=== PATIENT | female | born 1970 | race Caucasian/White ===

== ENCOUNTER 2020-04-22 06:09 | Outpatient (REF) | payer OTHER, SELFPAY ==
[2020-04-22 07:05] LABS: Hematocrit 40.9 % (37-47); Hemoglobin 13.4 g/dl (12.0-16.0); Mean Corpuscular HGB Conc 32.8 g/dl (31.0-35.0); Mean Corpuscular Hemoglobin 29.8 pg (27.0-33.0); Mean Corpuscular Volume 90.9 fL (80-98); Platelet Count 225 X10*3/uL (160-400); Red Cell Distribution Width 12.9 % (11.0-16.0); White Blood Count 6.5 X10*3/uL (4.8-10.8)
[2020-04-22 07:31] LABS: Alanine Aminotransferase 25 U/L (0-31); Albumin Level 4.6 g/dL (3.5-5.0); Alkaline Phosphatase 75 U/L (39-117); Aspartate Amino Transferase 18 U/L (5-31); Bilirubin Direct 0.2 mg/dL (0.0-0.5); Bilirubin Total 0.7 mg/dL (0.0-1.0); Blood Urea Nitrogen 19 mg/dL (9-16); Calcium 9.4 mg/dL (8.4-10.2); Cholesterol 207 mg/dL; Estimated Glomerular Filt Rate > 60; Glucose Fasting 97 mg/dL (60-99); HDL Cholesterol 50 mg/dL; LDL Cholesterol Calculated 137 mg/dl; Total Protein 7.2 g/dL (6.5-8.0); Triglycerides 102 mg/dL
[2020-04-22 07:44] LABS: Anion Gap 14 (12-20); Carbon Dioxide 26 mmol/L (22-29); Chloride 106 mmol/L (96-108); Potassium 4.6 mmol/L (3.3-5.1); Sodium 141 mmol/L (135-145)
[2020-04-22 07:51] LABS: TSH reflex Free T4 1.76 uIU/mL (0.32-4.0)
== END 2020-04-22 06:10 | disposition home or self-care (01) ==
LOC: HO.LAB 06:09
PROVIDERS: PCP Hospitalist; Visit Provider Hospitalist
DX: Z00.00 Encounter for general adult medical examination without abnormal findings (principal); Z13.220 Encounter for screening for lipoid disorders; Z13.29 Encounter for screening for other suspected endocrine disorder
CPT/HCPCS: 36415; 80048; 80061; 80076; 84443; 85027

== ENCOUNTER 2020-08-21 13:57 | Outpatient (REF) | payer OTHER, SELFPAY ==
--- NOTE | ~2020-08-21 | MM_ITS ---
EXAMINATION: MM SCREENING DIGITAL BREAST TOMOSYNTHESIS, BILATERAL CLINICAL INFORMATION: Screening. Asymptomatic. The lifetime risk of breast cancer based on the Tyrer-Cuzick Model is 9%. COMPARISON: Outside mammography: 03/27/2019, 02/04/2015, 06/10/2010 ([facility]) TECHNIQUE: Digital breast tomosynthesis is performed in both the craniocaudal and mediolateral oblique views along with computer-aided detection (CAD). Synthesized 2D images are generated from the tomosynthesis. FINDINGS: There are scattered areas of fibroglandular density (ACR BI-RADS breast composition Category b). Breast tissue composition borders on predominantly fatty. The right breast is unremarkable. There is no interval mass or architectural abnormality. Neither breast shows abnormal calcifications. The axilla and skin contours are unremarkable. The left breast has a benign-appearing circumscribed subcentimeter macrolobulated nodule anterior central 3:00 position measuring 6 x 5 x 4 mm. This is not seen with certainty on prior exams. Patient will be recalled to further characterize with targeted ultrasound. The remainder the left breast is unremarkable. MM/MM tomosynthesis screening BI IMPRESSION: 1. Left: Circumscribed macrolobulated nodule 6 x 5 x 4 mm anterior central 3:00 position. 2. Right: No mammographic evidence of malignancy. ASSESSMENT: BI-RADS 0: Incomplete - Need Additional Imaging Evaluation RECOMMENDATION: 1. Targeted left breast ultrasound. 2. Radiology department staff will contact the patient for additional imaging. This patient's information was entered into a reminder system with a target due date for their next mammogram.
== END 2020-08-21 13:58 | disposition home or self-care (01) ==
LOC: HO.MAMMO 13:57
PROVIDERS: Visit Provider Hospitalist
DX: Z12.31 Encounter for screening mammogram for malignant neoplasm of breast (principal)
CPT/HCPCS: 77063; 77067

== ENCOUNTER → 2020-08-31 14:01 | Outpatient (BNVA) | payer OTHER, SELFPAY | PROVIDERS: PCP Hospitalist; Referring Provider Hospitalist; Visit Provider Physician Assistant ==

== ENCOUNTER 2020-09-01 10:50 | Outpatient (REF) | payer OTHER, SELFPAY ==
--- NOTE | ~2020-09-01 | US_ITS ---
EXAMINATION: US DIAGNOSTIC ULTRASOUND BREAST, LEFT CLINICAL INFORMATION: Left breast circumscribed density 3 o'clock position. COMPARISON: Mammography: 08/21/2020 and studies dating back to 02/04/2015. TECHNIQUE: Ultrasound of the breast is performed with real-time conteh scale imaging and color Doppler. FINDINGS: About the 3 o'clock position, 4 cm from the nipple, there is a cylindrical circumscribed hypoechoic lesion which corresponds in shape and location to the mammographic finding. There is some minimal through-sound transmission present and no internal vascularity. On longitudinal imaging, it appears to be taller than it is wide but without sound shadowing and with some mild distal sound enhancement. This likely represents a small cyst. Six-month follow-up left breast mammogram and ultrasound recommended. The initial recommendation given to patient at time of study was one-year follow-up. Patient will be notified of the new 6-month follow-up recommendation. US/US breast LT limited IMPRESSION: Mammographic density 3 o'clock position, 4 cm from nipple, appears to correspond to a complex cyst. There is no distal-sound shadowing and no internal vascularity. On one image, the lesion is taller than it is wide but still has smooth back wall and no distal-sound shadowing. Six-month follow-up mammography and ultrasound recommended. ASSESSMENT: BI-RADS 3: Probably Benign. RECOMMENDATION: Diagnostic mammography in 6 months. This patient's information was entered into a reminder system with a target due date for their next mammogram.
== END 2020-09-01 10:51 | disposition home or self-care (01) ==
LOC: HO.MAMMO 10:50
PROVIDERS: PCP Hospitalist; Visit Provider Hospitalist
DX: R92.8 Other abnormal and inconclusive findings on diagnostic imaging of breast (principal)
CPT/HCPCS: 76642

== ENCOUNTER 2020-10-16 06:52 | Day surgery (SDC) | payer OTHER, SELFPAY ==
[2020-10-08 11:39] VITALS: BMI 38.9
[2020-10-16 07:15] VITALS: BP 138/75; PULSE 91; RESP 16; TEMP 36.4; O2SAT 97
--- NOTE | 2020-10-16 07:44 | P.CONAN_ITS ---
HPI - Anesthesia Eval Consult details Narrative: Screening Colonoscopy [facility] Active Problems Active Problems: All Active Problems (Updated 10/08/20 @ 11:46 by Sherita Barney) Asthma, mild intermittent, well-controlled (Acute) Obesity (BMI 35.0-39.9 without comorbidity) (Acute) Well adult exam (Acute) Ascending aorta dilatation (Acute) Mild concentric left ventricular hypertrophy (LVH) (Acute) Essential hypertension (Acute) Screening for colon cancer (Acute) Past Medical History Medical History AA (aortic aneurysm) Asthma delivery delivered COVID-19 vaccine series completed Migraines Varicose veins of both legs with edema Family History Family History Father Hypertension Colon polyps Mother Hypertension Paternal Grandfather Colon cancer Family history of problems with anesthesia: No Surgical History Surgical History H/O medial meniscus repair of right knee H/O tubal ligation History of cholecystectomy History of Problems with Anesthesia: No Social History Social History Household Members Other:: , 14 y/o Are you a primary floor care technician to a significant other at home: No Do you presently have visiting nurse or other home services: No Patient Tobacco Use Status: Never used Tobacco Use of substances other than those prescribed or required for medical reasons: No Have you been hit, kicked, punched, or otherwise hurt by someone within the past year? If so, by whom?: No Are you DNR?: No Advance Directives: No Advance Directives Information Provided: No Advance Directives on File: No Recently lost weight without trying: No Eating poorly because of decreased appetite: No Nutrition Risks: No Nutritional Risk Patient : No Current occupation: Nurse Meds Allergies Allergy/AdvReac Type Severity Reaction Status Date / Time No Known Allergies Allergy Verified 10/16/20 07:06 Wet cold weather Allergy Intermediate urticaria Uncoded 10/08/20 11:46 Active Medications: Current Medications Generic Name Dose Route Start Last Admin Trade Name Freq PRN Reason Stop Dose Admin Acetaminophen 650 mg 10/16/20 07:44 Acetaminophen 325 Mg Tablet PO ONCE PRN Pain, Mild (Pain Scale 1-3) Lactated Ringer's 1,000 mls @ 50 mls/hr 10/16/20 07:45 Lr IVCONT .Q20H DILSHAD Ondansetron HCl 4 mg 10/16/20 07:44 Ondansetron Hcl 4 Mg/2 Ml Vial IVPUSH ONCE PRN Nausea and Vomiting Home Medications Medication Instructions Recorded Confirmed Last Taken Type albuterol sulfate 90 mcg/actuation 2 puff INHALATION Q4H PRN 03/18/20 10/08/20 Unknown History aerosol inhaler epinephrine 0.3 mg/0.3 mL 1 IM DIRECTED PRN 03/18/20 04/23/20 Unknown History injection, auto-injector Exam Exam Date and Time: October 16, 2020 0744 Height,Weight and Vital Signs: Height 5 ft 5 in Weight 106.141 kg Last Vital Signs Temp 97.6 F 10/16/20 07:15 Pulse 91 10/16/20 07:15 Resp 16 10/16/20 07:15 BP 138/75 10/16/20 07:15 Pulse Ox 97 10/16/20 07:15 Airway Mallampati Class: II TM Dist: >3cm Neck ROM: Full Loose/Missing/Broken Teeth: No Heart: [id number] Lungs: +b/s bilaterally Assessment and Plan Assessment Anesthesia Assessment: Anesthesia Plan Discussed and Chart Reviewed Final Anesthetic Review Family History of Problems with Anesthesia: No History of Problems with Anesthesia: No NPO: Yes ASA Class: II Final Preanesthetic Review: No Changes in Pt Med Stat, Meds/Allgs Chart Reviewed, Consent Obtained/Reviewed and Anes Risks/Benef Reviewed Patient Risk: Intermediate Procedure Risk: Low Assessment/Block/Sedation in SS: Assess/Block/Sedation-SS Anesthetic Plan Anesthetic Plan: MAC: and Agree w/ Assess. and Plan Disposition: Standard PACU
[2020-10-16] MEDS: Lactated Ringers 1,000 ML 50 ML IVCONT (07:50)
--- NOTE | 2020-10-16 08:28 | P.HPSUR_ITS ---
Pre-Procedural Eval Section A Date of Service: 10/16/20 The patient is an INPATIENT: No The History & Physical has been completed within 30 days and I have reviewed it.: No Section B Chief Complaint: Colon cancer Screening Details of Present Illness: Colon cancer screening, family history of colon cancer and polyps Relevant Family History (Specify if Yes): Yes Relevant Social History: None Present Medications: see Short Stay Collaborative assessment Medical History: Significant History (AA (aortic aneurysm) Asthma deli very delivered Migraines Varicose veins of both legs with edema) History of Previous Operations: Relevant previous surgery/procedure and date(s) (H/O tubal ligation History of cholecystectomy) Allergies: Allergies Allergy/AdvReac Type Severity Reaction Status Date / Time No Known Allergies Allergy Verified 10/16/20 07:06 Wet cold weather Allergy Intermediate urticaria Uncoded 10/08/20 11:46 Review of Systems Sugical H&P ROS: Negative: Constitution, Cardiovascular and Gastrointestinal and Yes, Specify: Respiratory (asthma) Exam Surgical H&P Exam: Normal: Heart, Normal: Lungs, Normal: Extremities and Normal: Abdomen Plan Diagnosis/Plan: Unchanged I have reviewed the history and physical and performed a pertinent physical examination on my patient. No changes have occurred unless specified.
--- NOTE | 2020-10-16 08:31 | P.BOP_ITS ---
Brief Operative Note Date of Service: 10/16/20 Pre-op diagnosis: Colon cancer screening, family history of colon cancer and polyps Post-op diagnosis: other (colon polyps, diverticulosis) Procedure: COLONOSCOPY TILL CECUM WITH BIOPSIES AND SNARE POLYPECTOMY Consent: Indications for the procedure and potential complications of bleeding, perforation, reaction to medications and missed diagnosis were discussed with the patient and informed consent was obtained. Instrument: Olympus PCF H 190 L variable stiffness pediatric colonoscope Monitoring: Vital signs and clinical assessment, intermittent blood pressure monitoring, continuous EKG monitoring, Pulse oximetry and Carbon Dioxide monitoring were done throughout the procedure. Colon withdrawl time was 23 minutes. Procedure: The patient was placed in the left lateral decubitis position and pre-procedure medications were administered. After a digital rectal examination of the ano-rectum, the video colonoscope was inserted into the rectum and advanced through the colon to the cecum. The colonoscope was slowly withdrawn in a retrograde panoramic fashion and the colon mucosa was carefully examined including a retroflexed view of the rectum. Findings and interventions are described below. Procedure Difficulty: Without difficulty Findings: Terminal Ileum: Not evaluated Cecum: A 3-4 mm sessile polyp removed with a cold bx Ascending Colon: A 15 mm sessile polyp in mid AC - removed with a hot snare Transverse Colon: Normal Descending Colon: Normal Sigmoid Colon: Moderate diverticulosis Rectum: Normal Ano-rectum: Normal Colon preparation: Good after some irrigation Impression and Post Procedure Diagnosis: Colonoscopy Findings: Two small to medium sized polyps removed Moderate diverticulosis seen in the sigmoid colon Moderate hemorrhoids on retroflexed exam. Plan: Await pathology results Patient has an appointment on 10/27/20 in the GI Clinic with MARLENI Ashford. Repeat Colonoscopy interval based on path results - in 3 years if polyps are adenomatous and 5 years if polyps are hyperplastic - due to positive family history. Above findings were reviewed with the patient and colon polyps and diverticulosis handouts were given in the discharge area Surgeon: Melanie Muir MD Anesthesia: MAC (Vesna Fay CRNA) Was an Staff Radiation Therapist used for this Procedure?: Yes Staff Radiation Therapist: Isabell Carranza Estimated blood loss (mL): 0 Pathology: other (A- CECAL POLYP B- ASCENDING COLON POLYP) Condition: stable Disposition: PACU
[2020-10-16 09:26] VITALS: BP 90/50; PULSE 78; RESP 16; TEMP 36.4; O2SAT 97
[2020-10-16 09:41] VITALS: BP 110/82; PULSE 86; RESP 18; TEMP 36.4; O2SAT 98
--- NOTE | 2020-10-16 15:28 | P.OP_ITS ---
Operative Note Operative Note Date of Service: 10/16/20 Narrative: Pre-op diagnosis:?Colon cancer screening, family history of colon cancer and polyps Post-op diagnosis:?other (colon polyps, diverticulosis) Procedure:? COLONOSCOPY TILL CECUM WITH BIOPSIES AND SNARE POLYPECTOMY Consent: Indications for the procedure and potential complications of bleeding, perforation, reaction to medications and missed diagnosis were discussed with the patient and informed consent was obtained. Instrument: Olympus PCF H 190 L variable stiffness pediatric colonoscope Monitoring: Vital signs and clinical assessment, intermittent blood pressure monitoring, continuous EKG monitoring, Pulse oximetry and Carbon Dioxide monitoring were done throughout the procedure. Colon withdrawl time was 23 minutes. Procedure: The patient was placed in the left lateral decubitis position and pre-procedure medications were administered. After a digital rectal examination of the ano-rectum, the video colonoscope was inserted into the rectum and advanced through the colon to the cecum. The colonoscope was slowly withdrawn in a retrograde panoramic fashion and the colon mucosa was carefully examined including a retroflexed view of the rectum. Findings and interventions are described below. Procedure Difficulty: Without difficulty Findings: Terminal Ileum: Not evaluated Cecum:? A 3-4 mm sessile polyp removed with a cold bx Ascending Colon:? A 15 mm sessile polyp in mid AC - removed with a hot snare Transverse Colon:? Normal Descending Colon:? Normal Sigmoid Colon:? Moderate diverticulosis Rectum:? Normal Ano-rectum:? Normal Colon preparation:? Good? after some irrigation Impression and Post Procedure Diagnosis: Colonoscopy Findings: Two small to medium sized polyps removed Moderate diverticulosis seen in the sigmoid colon Moderate hemorrhoids on retroflexed exam. Plan: Await pathology results Patient has an appointment on 10/27/20 in the GI Clinic with MARLENI Ashford. Repeat Colonoscopy interval based on path results - in 3 years if polyps are adenomatous and 5 years if polyps are hyperplastic - due to positive family history. Above findings were reviewed with the patient and colon polyps and diverticulosis handouts were given in the discharge area Surgeon:?Melanie Muir MD Anesthesia:?MAC (Vesna Fay CRNA) Was an Electronics Technology Instructor used for this Procedure?:?Yes Electronics Technology Instructor:?Isabell Carranza Estimated blood loss (mL):?0 Pathology:?other (A- CECAL POLYP? B- ASCENDING COLON POLYP) Condition:?stable Disposition:?PACU
== END 2020-10-16 10:07 | disposition home or self-care (01) ==
PROVIDERS: PCP Hospitalist; Visit Provider Internal Medicine Gastroenterology
PROC: 0DJD8ZZ Inspection of Lower Intestinal Tract, Via Natural or Artificial Opening Endoscopic (ICD-10-PCS; CPT 45378; principal; 2020-10-16 08:20)
DX: Z12.11 Encounter for screening for malignant neoplasm of colon (principal); Z80.0 Family history of malignant neoplasm of digestive organs; Z83.71 Family history of colonic polyps; D12.0 Benign neoplasm of cecum; D12.2 Benign neoplasm of ascending colon; K57.30 Diverticulosis of large intestine without perforation or abscess without bleeding; K64.8 Other hemorrhoids
CPT/HCPCS: 45385; 45380; 88305

== ENCOUNTER → 2020-10-27 11:02 | Outpatient (BNVA) | payer OTHER, SELFPAY | PROVIDERS: Visit Provider Physician Assistant ==

== ENCOUNTER 2021-03-19 12:50 | Outpatient (REF) | payer OTHER, SELFPAY ==
--- NOTE | ~2021-03-19 | MM_ITS ---
EXAMINATION: MM DIAGNOSTIC DIGITAL MAMMOGRAPHY, LEFT TARGETED LEFT BREAST ULTRASOUND CLINICAL INFORMATION: Six-month follow-up left breast density. The lifetime risk of breast cancer based on the Tyrer-Cuzick Model is 9.4%. COMPARISON: Mammography: 09/01/2020 and studies dating back to 06/10/2010. TECHNIQUE: Digital mammography is performed in craniocaudal and mediolateral oblique views along with computer-aided detection (CAD). Targeted left breast ultrasound. FINDINGS: There are scattered areas of fibroglandular density (ACR BI-RADS breast composition Category b). The circumscribed density within the anterior lateral aspect of the left breast is seen to be smaller in size than on the prior study measuring approximately 3 x 2 mm in size compared to 6 x 5 mm previously. No new abnormal dominant mass identified. No suspicious grouping of microcalcifications. Left breast targeted ultrasound again demonstrates at the 3 o'clock position 4 cm from the nipple a hypoechoic structure with minimal distal sound enhancement and no distal sound shadowing which is well-circumscribed and measures 2 x 2 x 2 mm in size. This is smaller than on prior study and represents a regressing cyst. Results are discussed with the patient at time of visit. MM/MM diagnostic mammo unilat LT IMPRESSION: Left breast lesion is smaller than on prior study and represents a regressing cyst. ASSESSMENT: BI-RADS 2: Benign. RECOMMENDATION: Routine annual mammography screening. This patient's information was entered into a reminder system with a target due date for their next mammogram.
--- NOTE | ~2021-03-19 | US_ITS ---
EXAMINATION: US DIAGNOSTIC ULTRASOUND BREAST, LEFT CLINICAL INFORMATION: Six-month follow-up left breast density. COMPARISON: September 01, 2020 and studies dating back to June 10, 2010. TECHNIQUE: Ultrasound of the breast is performed with real-time conteh scale imaging and color Doppler. FINDINGS: Left breast targeted ultrasound again demonstrates at the 3:00 position 4 cm from the nipple a hypoechoic structure with minimal distal sound enhancement and no distal sound shadowing which is well-circumscribed and measures 2 x 2 x 2 mm in size. No internal vascularity present. This is smaller than on prior study and represents a regressing cyst. Results are discussed with the patient at time of visit. US/US breast LT limited IMPRESSION: Left breast lesion is smaller than on prior study and represents a regressing cyst. ASSESSMENT: BI-RADS 2: Benign RECOMMENDATION: Routine annual mammography screening.
== END 2021-03-19 12:51 | disposition home or self-care (01) ==
LOC: HO.MAMMO 12:50
PROVIDERS: Visit Provider Hospitalist
DX: R92.2 Inconclusive mammogram (principal)
CPT/HCPCS: 76642; 77065

== ENCOUNTER 2021-09-07 08:02 | Outpatient (REF) | payer OTHER, SELFPAY ==
[2021-09-10 00:53] LABS: TS Negative Control Passed; TS Panel A 0; TS Panel B 0; TS Positive Control Passed; TSpotTB Negative (Negative)
== END 2021-09-07 08:03 | disposition home or self-care (01) ==
LOC: HO.LAB 08:02
PROVIDERS: PCP Hospitalist; Visit Provider Hospitalist
DX: R76.11 Nonspecific reaction to tuberculin skin test without active tuberculosis (principal)
CPT/HCPCS: 36415; 86481

== ENCOUNTER 2021-10-27 07:51 | Outpatient (REF) | payer OTHER, SELFPAY ==
[2021-10-27 10:44] LABS: Alanine Aminotransferase 24 U/L (0-31); Albumin Level 4.5 g/dL (3.5-5.0); Alkaline Phosphatase 62 U/L (39-117); Anion Gap 16 (12-20); Aspartate Amino Transferase 20 U/L (5-31); Bilirubin Total 0.5 mg/dL (0.0-1.0); Blood Urea Nitrogen 23 mg/dL (9-16); Calcium 9.6 mg/dL (8.4-10.2); Carbon Dioxide 29 mmol/L (22-29); Chloride 99 mmol/L (96-108); Cholesterol 216 mg/dL; Estimated Glomerular Filt Rate > 60; Glucose Fasting 99 mg/dL (60-99); HDL Cholesterol 56 mg/dL; LDL Cholesterol Calculated 144 mg/dl; Potassium 3.9 mmol/L (3.3-5.1); Sodium 140 mmol/L (135-145); Total Protein 7.3 g/dL (6.5-8.0); Triglycerides 80 mg/dL
[2021-10-27 11:00] LABS: Estimated Average Glucose 108 mg/dL; Hemoglobin A1c % 5.4 %
[2021-10-27 11:06] LABS: TSH reflex Free T4 0.94 uIU/mL (0.32-4.0)
== END 2021-10-27 07:52 | disposition home or self-care (01) ==
LOC: HO.WFDLDS 07:51
PROVIDERS: Visit Provider Hospitalist
DX: Z00.00 Encounter for general adult medical examination without abnormal findings (principal); E78.9 Disorder of lipoprotein metabolism, unspecified; I10 Essential (primary) hypertension; E66.01 Morbid (severe) obesity due to excess calories
CPT/HCPCS: 36415; 80053; 80061; 83036; 84443

== ENCOUNTER 2022-04-18 08:39 | Outpatient (REF) | payer OTHER, SELFPAY ==
--- NOTE | ~2022-04-18 | MM_ITS ---
EXAMINATION: MM SCREENING DIGITAL BREAST TOMOSYNTHESIS, BILATERAL CLINICAL INFORMATION: Screening. Asymptomatic. The lifetime risk of breast cancer based on the Tyrer-Cuzick Model is 9%. COMPARISON: Mammography: 03/19/2021, 03/23/2020, outside mammography 03/27/2019 and 02/04/2015 ([place]). TECHNIQUE: Digital breast tomosynthesis is performed in both the craniocaudal and mediolateral oblique views along with computer-aided detection (CAD). Synthesized 2D images are generated from the tomosynthesis. FINDINGS: There are scattered areas of fibroglandular density (ACR BI-RADS breast composition Category b). There are no significant masses, abnormal calcifications, or other abnormalities. Parenchymal pattern is similar to prior studies. There is no developing density or architectural abnormality. The axilla and skin contours are unremarkable. No significant changes. MM/MM tomosynthesis screening BI IMPRESSION: No mammographic evidence of malignancy. ASSESSMENT: BI-RADS 1: Negative RECOMMENDATION: Routine annual mammography screening. This patient's information was entered into a reminder system with a target due date for their next mammogram.
== END 2022-04-18 08:40 | disposition home or self-care (01) ==
LOC: HO.MAMMO 08:39
PROVIDERS: PCP Hospitalist; Visit Provider Hospitalist
DX: Z12.31 Encounter for screening mammogram for malignant neoplasm of breast (principal)
CPT/HCPCS: 77063; 77067

== ENCOUNTER 2023-06-14 14:42 | Outpatient (AMB) | payer OTHER, SELFPAY ==
--- NOTE | 2023-06-14 14:48 | A.OFFVIS_ITS ---
Vital Signs 06/14/23 14:51 Height 5 ft 6 in Weight 250 lb BMI 40.3 BP 99/57 L Blood Pressure Location Lt brachial Position Sitting Pulse 94 Intake Visit Reasons: follow up before recall colonoscopy due in 6months Intake Note: Patient follow up for 2nd Pre Colonoscopy. Patient cc: acid reflex with burning sensation on and off, between diarrhea and constipation come and go. Denies any other GI issues. Office Mail Clerk Required: No Accompanied by: Self / Same As Patient Allergies No Known Allergies Allergy (Verified 06/14/23 14:47) Wet cold weather Allergy (Intermediate, Uncoded 06/01/22 11:12) urticaria Medication List - Last Reconciled 06/14/23 by Roberta Santiago PA-C albuterol sulfate 90 mcg/actuation 2 puffs inhalation Q4H PRN epinephrine 1 IM DIRECTED PRN hydrochlorothiazide 25 mg PO QAM lisinopril 15 mg (1.5 x 10 mg) PO DAILY HPI Comments Details: A 53 y/o female with hx - colon adenoma/ sessile 2020-due for repeat Appetite is good Normal bowels She has no GI or general complaints However she requests something for nausea she had difficulty tolerating prep - nausea did vomit Appetite is good bowels are fairly normal No nausea, vomiting, hematemesis, hematochezia fever or chills PFSH Medical History (Updated 06/26/23 @ 08:54 by Roberta Santiago PA-C) COVID-19 vaccine series completed delivery delivered Varicose veins of both legs with edema AA (aortic aneurysm) Migraines Asthma Surgical History (Updated 06/14/23 @ 14:49 by Katiana Arceo) Hx of colonoscopy H/O medial meniscus repair of right knee History of cholecystectomy H/O tubal ligation Family History Father Hypertension Colon polyps Mother Hypertension Paternal Grandfather Colon cancer Child No Financial Resp Anxiety Social History Household Members Other:: , 14 y/o Housing: House Are you a primary respiratory care specialist to a significant other at home: No Do you presently have visiting nurse or other home services: No Patient Tobacco Use Status: Never used Tobacco e-Cigarette/Vaping Use: Never Used Second Hand Smoke Exposure: No service: No Current occupation: Nurse Review of Systems Const All systems reviewed & are unremarkable except as noted in HPI and below Physical Exam Vital Signs: Last Vital Signs Pulse 94 06/14/23 14:51 BP 99/57 L 06/14/23 14:51 BMI result Body Mass Index 40.3 Const General: cooperative, comfortable and no acute distress Orientation/consciousness: patient oriented x3 Limitations: no limitations Resp Effort & Inspection: normal respiratory effort and able to speak in complete sentences Auscultation: clear to auscultation bilaterally, no rales, no rhonchi and no wheezes Cardio Rate: regular rate Rhythm: regular rhythm Heart sounds: S1 normal heart sound present and S2 normal heart sound present GI Palpation (GI): Soft to palpation and nontender Auscultation: normal bowel sounds Neuro General: patient oriented x3 Psych Appearance: grossly normal Mental Status: mental status grossly normal Speech and movement: Normal speech and movement present Affect: normal affect Attitude: cooperative Thought process: Normal thought process present Thought content: Normal thought content present Insight: Good insight present (Psych) Judgement: Good judgement present (Psych) Results Reviewed Results Reviewed: 10/2020- Results Reviewed: Name:?Татьяна Villavicencio Age/Sex: 50/F Attending: Melanie Muir MD : 1970 Submitted by: Melanie Muir MD Copies to: Neela Winkler NP MR #: [id number] ? Status: [facility] Collected: 10/16/20 Location: [facility] Received: 10/16/20 Diagnosis A.? Cecum, polypectomy:? Tubular adenoma; no high grade dysplasia or carcinoma seen; multiple additional levels examined. B.? Colon, ascending, polypectomy:? Sessile serrated polyp. Clinical History Pre-Op Dx:? Screening Post-Op Dx: Colon polyps, diverticulosis Findings: Terminal Ileum: Not evaluated Cecum:? A 3-4 mm sessile polyp removed with a cold bx Ascending Colon:? A 15 mm sessile polyp in mid AC - removed with a hot snare Transverse Colon:? Normal Descending Colon:? Normal Sigmoid Colon:? Moderate diverticulosis Rectum:? Normal Ano-rectum:? Normal Colon preparation:? Good? after some irrigation Impression and Post Procedure Diagnosis: Colonoscopy Findings: Two small to medium sized polyps removed Moderate diverticulosis seen in the sigmoid colon Moderate hemorrhoids on retroflexed exam. Plan: Await pathology results Patient has an appointment on 10/27/20 in the GI Clinic with MARLENI Ashford. Repeat Colonoscopy interval based on path results - in 3 years if polyps are adenomatous and 5 years if polyps are hyperplastic - due to positive family history. Above findings were reviewed with the patient and colon polyps and diverticulosis handouts were given in the discharge area Assessment & Plan Assessment & Plan (1) Sessile serrated polyp of colon: Comment: Reviewed previous colonoscopy report, pathology and recommendation Code(s): D12.6 - Benign neoplasm of colon, unspecified Category: Medical Plan: Due for polyp surveillance colonoscopy (2) Colon adenomas: Code(s): D12.6 - Benign neoplasm of colon, unspecified Category: Medical Plan: Polyp surveillance Plan BMI 40.3 Colonoscopy MG prep- ondansatron Dr. Muir Orders: Orders Colonoscopy - GI Use Only 06/14/23 D12.6 - Benign neoplasm of colon, unspecified, K57.30 - Diverticulosis of large intestine without perforation or abscess without bleeding Medications: New bisacodyl (Dulcolax (bisacodyl)) Day before procedure @ 12 noon Take 4 tablets by mouth followed by large glass of water 20 mg (4 x 5 mg) PO ONCE PRN 4 tabs 0RF colonoscopy prep 1 day Z12.11 - Encounter for screening for malignant neoplasm of colon polyethylene glycol 3350 (Miralax) Take as directed by mouth the day before your procedure. 238 grams PO ONCE 238 grams 0RF laxative effect 1 day ondansetron HCl 4 mg PO DAILY PRN 10 tabs 0RF nausea and vomiting Patient Instructions: Polyp surveillance colonoscopy Reviewed procedure, rare risks need for us Ondansetron for nausea Encouraged to call questions or concerns
[2023-06-14 14:51] VITALS: BP 99/57; PULSE 94; BMI 40.3
== END 2023-06-14 15:33 | disposition home or self-care (01) ==
PROVIDERS: PCP Hospitalist; Visit Provider Physician Assistant
DX: D12.6 Benign neoplasm of colon, unspecified (principal)
CPT/HCPCS: 99213

== ENCOUNTER → 2023-06-14 14:42 | Outpatient (BNVA) | payer OTHER, SELFPAY | PROVIDERS: PCP Hospitalist; Visit Provider Physician Assistant ==

== ENCOUNTER 2023-07-14 12:47 | Outpatient (AMB) | payer OTHER, SELFPAY ==
--- NOTE | 2023-07-14 12:52 | MHC.PC.OV ---
Vital Signs 07/14/23 12:53 Height 5 ft 6 in Weight 258 lb BMI 41.6 BP 112/58 L Blood Pressure Location Lt brachial Position Sitting Pulse 102 H Pulse Source Pulse Oximeter Pulse Oximetry (%) 98 Oxygen Delivery Method Room Air Intake Visit Reasons: Meds for flight/re-establish care Intake Note: Patient is here to reestablish care, and would like to have meds for flying. Patient needs refill on inhaler, and ep-ipen. Allergies No Known Allergies Allergy (Verified 07/14/23 12:57) Wet cold weather Allergy (Intermediate, Uncoded 07/14/23 12:57) urticaria Medication List - Last Reconciled 07/14/23 by Virgilio Cheatham MD albuterol sulfate 90 mcg/actuation 2 puffs inhalation Q4H PRN bisacodyl (Dulcolax (bisacodyl)) 20 mg (4 x 5 mg) PO ONCE PRN 1 day epinephrine 1 IM DIRECTED PRN hydrochlorothiazide 25 mg PO QAM lisinopril 15 mg (1.5 x 10 mg) PO DAILY ondansetron HCl 4 mg PO DAILY PRN polyethylene glycol 3350 (Miralax) 238 grams PO ONCE 1 day Tobacco use date assessed: 07/14/23 Dental Screening Dental Screen Date: 07/14/23 HPI Meds for flight/re-establish care HPI Details Patient?presents?to?establish?care.??Transfer?care?from?Neela?Cahti?but?has?not?been?seen?in?2?years. Snoring,?daytime?fatigue?and?apneic?events. PmHx: HTN, HLD, Aortic aneurysm Dr Nagel, LVH. Asthma, Erticaria to Cold and Cold water. Surgeries: C-sect, Tubal Lig. GB FHx: Mom: HTN. DAd: HTN Siblings: HTN. Social Hx: Nonsmoker, EtOH rare [address] dr Moe No drugs PFSH Medical History (Updated 07/14/23 @ 13:54 by Virgilio Cheatham MD) COVID-19 vaccine series completed delivery delivered Varicose veins of both legs with edema AA (aortic aneurysm) Migraines Asthma Surgical History (Updated 06/14/23 @ 14:49 by Katiana Arceo) Hx of colonoscopy H/O medial meniscus repair of right knee History of cholecystectomy H/O tubal ligation Family History (Updated 07/14/23 @ 13:06 by Yumiko Suggs [employer]) Father Hypertension Colon polyps Mental health disorder Mother Hypertension Paternal Grandfather Colon cancer Child No Financial Resp Anxiety Social History Household Members Other:: , 14 y/o Housing: House Are you a primary overnight caregiver to a significant other at home: No Do you presently have visiting nurse or other home services: No Patient Tobacco Use Status: Never used Tobacco e-Cigarette/Vaping Use: Never Used Second Hand Smoke Exposure: No service: No Current occupation: Nurse Cognitive needs: No Hearing needs: No Vision needs: Yes (Patient wears glasses.) Questionnaire Thrive Questionnaire Date Thrive assessed: 01/14/21 CHRISTIE-7 AMB Questionnaire CHRISTIE-7 Date CHRISTIE - 7 assessed: 01/14/21 Source: Developed by Drs. Porter Kasper, Leila Dacosta, Errol Leung and colleagues, with an educational summer from [employer]. Review of Systems Const Denies chills, Denies fatigue, Denies fever(s), Denies headache(s) and Denies weakness ENT Denies dizziness and Denies headache(s) Card Denies chest pain, Denies lightheadedness, Denies dyspnea and Denies other (Palpitations) Resp Denies cough, Denies dyspnea, Denies wheezing and Denies other ( shortness of breath) Musc Denies numbness and Denies tingling Neuro Denies dizziness, Denies headache(s), Denies numbness, Denies tingling, Denies paresthesias and Denies weakness Psych Denies anxiety and Denies depression Endo Denies fatigue Aller/Immun Denies wheezing Physical exam (Primary Care) Vital Signs: Last Vital Signs Pulse 102 H 07/14/23 12:53 BP 112/58 L 07/14/23 12:53 Pulse Ox 98 07/14/23 12:53 Oxygen Delivery Method Room Air 07/14/23 12:53 BMI result Body Mass Index 41.6 Tobacco/Smoking Status: Tobacco use Status Tobacco use date assessed 07/14/23 07/14/23 13:10 Patient Tobacco Use Status Never used Tobacco 07/14/23 13:10 e-Cigarette/Vaping Use Never Used 07/14/23 13:10 Thrive Assessment: Date of Thrive Assessment Date Thrive assessed 01/14/21 07/14/23 13:10 Const General: no acute distress and well developed Nutritional Appearance: well nourished Orientation/consciousness: patient oriented x3 [facility] Head: Yes normocephalic and Yes atraumatic Eyes General: appearance normal, both eyes and all related structures Pupils: Equal, round and reactive pupils present EOM: EOMs intact bilaterally Resp Effort & Inspection: normal respiratory effort Auscultation: clear to auscultation bilaterally Cardio Rate: regular rate (Top?of?normal?range) Rhythm: regular rhythm Heart sounds: S1 normal heart sound present, S2 normal heart sound present, no gallops, Murmur heart sound present (4/6?systolic?murmur?over?aorta?and?mitral?regions) and no rubs Neuro General: patient oriented x3 and gait normal Cranial nerves: Yes Equal, round and reactive pupils present Psych Affect: normal affect Assessment and Plan Assessment & Plan (1) Essential hypertension: Code(s): I10 - Essential (primary) hypertension Plan: Blood?pressure?is?well?controlled.??Goal?is?less?than?130/80 Continue?current?medication (2) Ascending aorta dilatation: Code(s): I77.810 - Thoracic aortic ectasia Plan: Aortic?dilatation?and?murmur.??Also?LVH Followed?by? Follow-up?with?Cardiology?as?recommended (3) Murmur: Code(s): R01.1 - Cardiac murmur, unspecified Plan: 4/6?systolic?murmur?over?aortic?and?mitral?region Known?systolic?murmur?and?followed?by?cardiology (4) Asthma, mild intermittent, well-controlled: Code(s): J45.20 - Mild intermittent asthma, uncomplicated Plan: Controlled Continue?albuterol?p.r.n. (5) Elevated serum cholesterol: Code(s): E78.9 - Disorder of lipoprotein metabolism, unspecified Plan: History?of?elevated?cholesterol?level Check?lipid (6) Urticaria: Code(s): L50.9 - Urticaria, unspecified Plan: Triggered?by?cold?and?uses?EpiPen?if?needed Orders: Orders Comprehensive [place]. Panel Fast Today Z00.00 - Encounter for general adult medical examination without abnormal findings Complete Blood Count Auto Diff Today Z00.00 - Encounter for general adult medical examination without abnormal findings TSH reflex Free T4 Today Z00.00 - Encounter for general adult medical examination without abnormal findings Lipid Panel Today Z00.00 - Encounter for general adult medical examination without abnormal findings Microalbumin, Random (w Creat) Today I10 - Essential (primary) hypertension UA and rflx microscopic Today Z00.00 - Encounter for general adult medical examination without abnormal findings Referrals Sleep Medicine Referral G47.30 - Sleep apnea, unspecified Medications: New epinephrine (EpiPen 2-Gold) 0.3 mg (0.3 mL) IM Q4H 30 days PRN 2 ea 2RF anaphylaxis Refilled albuterol sulfate 90 mcg/actuation 2 puffs inhalation Q4H PRN 8.5 ea 7RF for wheezing Coding Level of Care Code Est Pt Level 4 (34999) Diagnoses Essential hypertension I10 Ascending aorta dilatation I77.810 Murmur R01.1 Asthma, mild intermittent, well-controlled J45.20 Elevated serum cholesterol E78.9 Urticaria L50.9
[2023-07-14 12:53] VITALS: BP 112/58; PULSE 102; O2SAT 98; BMI 41.6
== END 2023-07-14 16:45 | disposition home or self-care (01) ==
PROVIDERS: PCP Hospitalist; Visit Provider Family Medicine
DX: I10 Essential (primary) hypertension (principal); I77.810 Thoracic aortic ectasia; R01.1 Cardiac murmur, unspecified; J45.20 Mild intermittent asthma, uncomplicated; E78.9 Disorder of lipoprotein metabolism, unspecified; L50.9 Urticaria, unspecified
CPT/HCPCS: 99214

== ENCOUNTER 2023-08-24 06:44 | Outpatient (REF) | payer OTHER, SELFPAY ==
[2023-08-24 07:14] LABS: MANUAL DIFF FLAG NO
[2023-08-24 07:39] LABS: Basophils Percent Auto 0.6 % (0-2); Eosinophils Absolute Auto 0.3 X10*3/uL (0.0-0.4); Eosinophils Percent Auto 4.5 % (0-4); Hemoglobin 13.4 g/dl (12.0-16.0); Imm Gran Abs Auto 0.02 X10*3/uL (0.00-0.03); Imm Gran Pct Auto 0.3 % (0.0-0.4); Lymphocytes Absolute Auto 1.7 X10*3/uL (1.2-4.9); Lymphocytes Percent Auto 26.5 % (20-40); Mean Corpuscular HGB Conc 34.4 g/dl (31.0-35.0); Mean Corpuscular Hemoglobin 30.7 pg (27.0-33.0); Mean Corpuscular Volume 89.2 fL (80.0-98.0); Mean Platelet Volume 9.5 fL (9.4-12.3); Monocytes Absolute Auto 0.3 X10*3/uL (0.1-1.2); Monocytes Percent Auto 5.3 % (2-11); Neutrophils Percent Auto 62.8 % (45-73); Platelet Count 257 X10*3/uL (160-400); Red Blood Count 4.37 X10*6/uL (4.20-5.50); Red Cell Distribution Width 13.3 % (11.0-16.0); White Blood Count 6.4 X10*3/uL (4.8-10.8)
[2023-08-24 08:24] LABS: Alanine Aminotransferase 26 U/L (0-31); Albumin Level 4.3 g/dL (3.5-5.0); Alkaline Phosphatase 68 U/L (39-117); Anion Gap 14 (12-20); Aspartate Amino Transferase 21 U/L (5-31); Bilirubin Total 0.7 mg/dL (0.0-1.0); Blood Urea Nitrogen 17 mg/dL (9-16); Carbon Dioxide 27 mmol/L (22-29); Chloride 103 mmol/L (96-108); Cholesterol 214 mg/dL (<200); Estimated Glomerular Filt Rate > 60; Glucose Fasting 96 mg/dL (60-99); HDL Cholesterol 43 mg/dL (>40); LDL Cholesterol Calculated 133 mg/dL (<100); Potassium 3.4 mmol/L (3.3-5.1); Sodium 141 mmol/L (135-145); Total Protein 7.2 g/dL (6.5-8.0); Triglycerides 190 mg/dL (<150)
[2023-08-24 08:41] LABS: TSH reflex Free T4 1.15 uIU/mL (0.32-4.0)
== END 2023-08-24 06:45 | disposition home or self-care (01) ==
LOC: HO.LAB 06:44
PROVIDERS: PCP Family Medicine; Visit Provider Family Medicine
DX: Z00.00 Encounter for general adult medical examination without abnormal findings (principal)
CPT/HCPCS: 36415; 80053; 80061; 84443; 85025

== ENCOUNTER → 2023-09-06 13:01 | Outpatient (AMB) | payer OTHER, SELFPAY ==
--- NOTE | 2023-09-06 12:54 | A.OFFPC_ITS ---
Intake Visit Reasons: meds for covid Intake Note: patient here today for covid med. Chicken Dresser Required: No Is last menstrual period known: No Post menopausal: No Patient : No Allergies No Known Allergies Allergy (Verified 09/06/23 12:58) Wet cold weather Allergy (Intermediate, Uncoded 07/14/23 12:57) urticaria Medication List - Last Reconciled 09/06/23 by Catherine Mccarty, [facility] albuterol sulfate 90 mcg/actuation 2 puffs inhalation Q4H PRN bisacodyl (Dulcolax (bisacodyl)) 20 mg (4 x 5 mg) PO ONCE PRN 1 day epinephrine 1 IM DIRECTED PRN epinephrine (EpiPen 2-Gold) 0.3 mg (0.3 mL) IM Q4H PRN 30 days hydrochlorothiazide 25 mg PO QAM levalbuterol tartrate 45 mcg/actuation 2 puffs inhalation Q4-6H PRN 90 days lisinopril 15 mg (1.5 x 10 mg) PO DAILY ondansetron HCl 4 mg PO DAILY PRN polyethylene glycol 3350 (Miralax) 238 grams PO ONCE 1 day Tobacco use date assessed: 07/14/23 Dental Screening Dental Screen Date: 07/14/23 HPI HPI Comments History of Present Illness Details Telehealth visit today for COVID. 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 Last night her developed symptoms of COVID and tested positive. Unfortunately this morning she woke with symptoms of COVID and tested positive as well this morning. Her symptoms include a temperature of a 104 degrees, cough, body aches. She does have a history of asthma. She reports that is well controlled with intermittent use of her albuterol sparingly. At the current shahram e she feels like her breathing is fine. She has a home oximeter and reports that her O2 sats have been fine. She wonders about starting Paxlovid. Speaking in full sentences, no cough or audible distress noted Plan Reviewed uses and side effects of Paxlovid. Willing to start. I have sent this to the local pharmacy. Take as directed. I have also sent Tessalon to help with the cough. Encouraged her to use her albuterol as needed. I have sent her in a prescription for prednisone to be used only if her asthma flares. Educated on reasons to start this medication. Also educated on reasons to seek additional medical treatment. Otherwise encouraged to follow up with the local CDC guidelines relative to COVID. This note is constructed using voice recognition software. While every effort has been made to ensure accuracy in crate repairer, still errors may have been included Sometimes, these errors may affect the content or meaning of the given sentence . [facility] Medical History (Updated 07/14/23 @ 13:54 by Virgilio Cheatham MD) COVID-19 vaccine series completed delivery delivered Varicose veins of both legs with edema AA (aortic aneurysm) Migraines Asthma Surgical History (Updated 06/14/23 @ 14:49 by Katiana Arceo) Hx of colonoscopy H/O medial meniscus repair of right knee History of cholecystectomy H/O tubal ligation Family History (Updated 07/14/23 @ 13:06 by Yumiko Suggs [facility]) Father Hypertension Colon polyps Mental health disorder Mother Hypertension Paternal Grandfather Colon cancer Child No Financial Resp Anxiety Social History Household Members Other:: , 14 y/o Housing: House Are you a primary ocular care aide to a significant other at home: No Do you presently have visiting nurse or other home services: No Patient Tobacco Use Status: Never used Tobacco e-Cigarette/Vaping Use: Never Used Second Hand Smoke Exposure: No Patient : No service: No Current occupation: Nurse Cognitive needs: No Hearing needs: No Vision needs: Yes (Patient wears glasses.) Questionnaire Thrive Questionnaire Date Thrive assessed: 01/14/21 CHRISTIE-7 AMB Questionnaire CHRISTIE-7 Date CHRISTIE - 7 assessed: 01/14/21 Source: Developed by Drs. Porter Kasper, Leila Dacosta, Errol Leung and colleagues, with an educational summer from [employer]. Physical exam (Primary Care) Tobacco/Smoking Status: Tobacco use Status Tobacco use date assessed 07/14/23 09/06/23 13:02 Patient Tobacco Use Status Never used Tobacco 09/06/23 13:02 e-Cigarette/Vaping Use Never Used 09/06/23 13:02 Thrive Assessment: Date of Thrive Assessment Date Thrive assessed 01/14/21 09/06/23 13:02 Telehealth Telehealth Telehealth Platform: Telephone Location of provider rendering services: practice address Location of patient: address on file Patient Identification confirmed using: Name, : Yes Telehealth method: voice only Patient verbally consented to treatment: Yes Patient verbally consented to billing insurance company: Yes Patient informed of any privacy concerns related to visit: Yes Minutes spent on Phone/Video with Pt.: 11 Assessment and Plan Assessment & Plan (1) COVID-19: Code(s): U07.1 - COVID-19 Medications: New nirmatrelvir-ritonavir 300 mg (150 mg x 2)-100 mg (Paxlovid) take TWO 150 mg tablets of nirmatrelvir with ONE 100 mg tablet of ritonavir twice daily for 5 days PO 30 ea 0RF benzonatate 100 mg PO TID 10 days PRN 30 caps 1RF cough prednisone 50 mg PO DAILY 5 days 5 tabs 0RF Coding Level of Care Code Est Pt Level 2 (78024) Diagnoses COVID-19 U07.1
== END ==
LOC: HO.HMGFM 13:02
PROVIDERS: PCP Family Medicine; Visit Provider Nurse Practitioner Family
DX: U07.1 COVID-19 (principal)
CPT/HCPCS: 99212

== ENCOUNTER 2023-09-19 15:51 | Outpatient (AMB) | payer OTHER, SELFPAY ==
[2023-09-19 15:55] VITALS: BP 114/66; PULSE 87; O2SAT 98; BMI 40.5
--- NOTE | 2023-09-19 15:55 | A.OFFPC_ITS ---
Vital Signs 09/19/23 15:55 Height 5 ft 6 in Weight 251 lb 2 oz BMI 40.5 BP 114/66 Blood Pressure Location Lt brachial Position Sitting Pulse 87 Pulse Source Pulse Oximeter Pulse Oximetry (%) 98 Oxygen Delivery Method Room Air Intake Visit Reasons: Annual exam Intake Note: Patient is here for her physical today. Allergies No Known Allergies Allergy (Verified 09/19/23 16:01) Wet cold weather Allergy (Intermediate, Uncoded 09/19/23 16:01) urticaria Medication List - Last Reconciled 09/19/23 by Virgilio Cheatham MD albuterol sulfate 90 mcg/actuation 2 puffs inhalation Q4H PRN benzonatate 100 mg PO TID PRN 10 days bisacodyl (Dulcolax (bisacodyl)) 20 mg (4 x 5 mg) PO ONCE PRN 1 day epinephrine 1 IM DIRECTED PRN epinephrine (EpiPen 2-Gold) 0.3 mg (0.3 mL) IM Q4H PRN 30 days hydrochlorothiazide 25 mg PO QAM levalbuterol tartrate 45 mcg/actuation 2 puffs inhalation Q4-6H PRN 90 days lisinopril 15 mg (1.5 x 10 mg) PO DAILY nirmatrelvir-ritonavir 300 mg (150 mg x 2)-100 mg (Paxlovid) take TWO 150 mg tablets of nirmatrelvir with ONE 100 mg tablet of ritonavir twice daily for 5 days PO ondansetron HCl 4 mg PO DAILY PRN polyethylene glycol 3350 (Miralax) 238 grams PO ONCE 1 day prednisone 50 mg PO DAILY 5 days Tobacco use date assessed: 07/14/23 Dental Screening Dental Screen Date: 07/14/23 HPI Annual exam HPI Details 53 y/o female rpesents for a CPE with f/ u labs and health maintenance. Labs were drawn 08/24/23. Reviewed labs with pt. Triglycerides 190. TC 214. LDL 133. HDL 43. Evidence of sleep apnea and referred her to Sleep medicine. She notes she has an appt. with them in November. [facility] Medical History (Updated 09/19/23 @ 17:21 by Virgilio Cheatham MD) COVID COVID-19 vaccine series completed delivery delivered Varicose veins of both legs with edema AA (aortic aneurysm) Migraines Asthma Surgical History (Updated 06/14/23 @ 14:49 by Katiana Arceo) Hx of colonoscopy H/O medial meniscus repair of right knee History of cholecystectomy H/O tubal ligation Family History (Updated 07/14/23 @ 13:06 by Yumiko Suggs [employer]) Father Hypertension Colon polyps Mental health disorder Mother Hypertension Paternal Grandfather Colon cancer Child No Financial Resp Anxiety Social History Household Members Other:: , 14 y/o Housing: House Are you a primary progressive care manager to a significant other at home: No Do you presently have visiting nurse or other home services: No Patient Tobacco Use Status: Never used Tobacco e-Cigarette/Vaping Use: Never Used Second Hand Smoke Exposure: No service: No Current occupation: Nurse Cognitive needs: No Hearing needs: No Vision needs: Yes (Patient wears glasses.) Questionnaire PHQ-9 Over the last 2 weeks, how often have you been bothered by any of the following problems? 1. Little interest or pleasure in doing things: not at all 2. Feeling down, depressed, or hopeless: not at all 3. Trouble falling or staying asleep, or sleeping too much: not at all 4. Feeling tired or having little energy: not at all 5. Poor appetite or overeating: not at all 6. Feeling bad about yourself - or that you are a failure or have let yourself or your family down: not at all 7. Trouble concentrating on things, such as reading the newspaper or watching television: not at all 8. Moving or speaking so slowly that other people could have noticed. Or the opposite - being so fidgety or restless that you have been moving around a lot more than usual: not at all 9. Thoughts that you would be better off or of hurting yourself in some way: not at all Total score: 0 Depression Screening Interpretation: Negative Depression Screening Done: Yes 99466 - PHQ-9 Billing: Yes Source: Developed by Drs. Porter Kasper, Leila Dacosta, Errol Leung and colleagues, with an educational summer from [employer]. Thrive Questionnaire Date Thrive assessed: 09/19/23 I am a: Patient What is your living situation today?: I have a steady place to live Within the past 12 months, did the food you bought not last and you didn't have the money to get more?: Never true Within the past 12 months, did you worry whether your food would run out before you got money to buy more?: Never true Do you have trouble paying for medicines?: No Do you have trouble getting transportation to medical appointments?: No Do you have trouble paying your heating and electricity bill?: No Do you have trouble taking care of your child, family member or friend?: No Do you have trouble with day-to-day activities such as bathing, preparing meals, shopping, managing finances, etc.?: No Are you currently unemployed and looking for a job?: No Are you interested in more education?: No THRIVE Score: 0 AUDIT C Alcohol Use Questionnaire (AUDIT-C) 1. How often do you have a drink containing alcohol?: Monthly or less 2. How many drinks containing alcohol do you have on a typical day when you are drinking?: 1 or 2 3. How often do you have six or more drinks on one occasion?: Never Total Score: 1 CHRISTIE-7 AMB Questionnaire CHRISTIE-7 Date CHRISTIE - 7 assessed: 09/19/23 Feeling nervous, anxious, or on edge: 0 = Not at all Not being able to stop or control worryin = Not at all Worrying too much about different things: 0 = Not at all Trouble relaxin = Not at all Being so restless that it is hard to sit still: 0 = Not at all Becoming easily annoyed or irritable: 0 = Not at all Feeling afraid as if something awful might happen: 0 = Not at all Total CHRISTIE-7 score (0-4 normal; 5-9 mild; 10-14 moderate; 15-21 severe): 0 Source: Developed by Drs. Porter Kasper, Leila Dacosta, Errol Leung and colleagues, with an educational summer from [employer]. CHRISTIE-7 Assessment Billing CHRISTIE-7 Assessment Tool: CHRISTIE-7 Assessment 05347 Review of Systems Const Denies chills, Denies fatigue, Denies fever(s), Denies headache(s) and Denies weakness Eyes Denies change in vision ENT Denies dizziness, Denies headache(s), Denies hearing loss, Denies nasal congestion, Denies sinus pain, Denies sinus pressure and Denies sore throat Card Denies chest pain, Denies lightheadedness, Denies dyspnea and Denies other (palpitations) Resp Denies cough, Denies dyspnea and Denies wheezing GI Denies abdominal pain, Denies melena, Denies hematochezia, Denies change in bowel habits, Denies dyspepsia and Denies nausea Denies hematuria and Denies dysuria Musc Denies abnormal gait, Denies myalgias, Denies arthralgias, Denies numbness and Denies tingling Skin/Breast Denies rash, Denies unusual bruising and Denies wounds Neuro Denies abnormal gait, Denies dizziness, Denies headache(s), Denies memory loss, Denies numbness, Denies Sensory deficit (Neuro), Denies tingling and Denies weakness Psych Denies anxiety, Denies depression and Denies memory loss Endo Denies cold intolerance, Denies fatigue, Denies heat intolerance, Denies polydipsia and Denies polyuria Bairon/Lymph Denies easy bleeding and Denies easy bruising Aller/Immun Denies wheezing Physical exam (Primary Care) Vital Signs: Last Vital Signs Pulse 87 09/19/23 15:55 BP 114/66 09/19/23 15:55 Pulse Ox 98 09/19/23 15:55 Oxygen Delivery Method Room Air 09/19/23 15:55 BMI result Body Mass Index 40.5 Tobacco/Smoking Status: Tobacco use Status Tobacco use date assessed 07/14/23 09/19/23 15:56 Patient Tobacco Use Status Never used Tobacco 09/19/23 15:56 e-Cigarette/Vaping Use Never Used 09/19/23 15:56 PHQ-9: PHQ-9 Score PHQ-9: Total score 0 09/19/23 16:56 Depression Screening Interpretation: Negative Thrive Assessment: Date of Thrive Assessment Date Thrive assessed 09/19/23 09/19/23 16:10 Const General: no acute distress, well developed, alert and awake Nutritional Appearance: well nourished Orientation/consciousness: patient oriented x3 HENMT Head: Yes normocephalic and Yes atraumatic Ears: hearing grossly normal bilaterally and TM's normal bilaterally General nose exam: Normal external nose present and Normal nares present Mouth: Normal oral and palatal mucosa present and moist mucous membranes Teeth and gingiva: dentition normal Throat: Yes posterior oropharynx normal Eyes General: appearance normal, both eyes and all related structures Pupils: Equal, round and reactive pupils present and Pupil accommodation reflex normal EOM: EOMs intact bilaterally Neck Neck: Yes normal visual inspection, Yes no lymphadenopathy and Yes trachea midline Thyroid: Thyroid normal Carotids: no bruits Lymphatic: no lymphadenopathy noted Chest Chest palpation & inspection: normal inspection of the chest Resp Effort & Inspection: normal respiratory effort Auscultation: clear to auscultation bilaterally Cardio Rate: regular rate Rhythm: regular rhythm Heart sounds: S1 normal heart sound present, S2 normal heart sound present, no gallops, Murmur heart sound present and no rubs Bruits: no abdominal aortic bruits and no carotid bruits GI Palpation (GI): No Abdominal aortic bruit present, Soft to palpation, nontender, No hepatosplenomegaly present and No Rebound tenderness present Auscultation: normal bowel sounds General: Yes no CVA tenderness Back/Spine/Pelvis Back: no CVA tenderness Cervical Spine: cervical ROM normal and No Cervical spine tenderness Thoracic/Lumbar Spine: thoraco-lumbar ROM normal, No pain with thoraco-lumbar ROM, No thoracic spinal tenderness and No lumbar spinal tenderness Skin Lesions: no lesions Rashes: no rashes Trauma: no lacerations or abrasions Wounds: no wounds Nails: normal Neuro General: patient oriented x3 Cranial nerves: Yes Equal, round and reactive pupils present Cognition (Neuro): normal cognition Gait exam (Neuro): Normal gait present Motor exam (neuro): 5/5 motor strength present throughout Sensory Exam: No Sensory deficit (Neuro) Deep tendon reflexes (DTR's): Right patellar reflex intensity grade: 2+ and Left patellar reflex intensity grade: 2+ Extrem General: Yes normal to inspection and No edema Psych Appearance: grossly normal Affect: normal affect Attitude: cooperative Thought process: Normal thought process present Assessment and Plan Assessment & Plan (1) Adult general medical exam: Code(s): Z00.00 - Encounter for general adult medical examination without abnormal findings Plan: 53-year-old?female?presents?for?complete?physical?exam Encouraged?healthy?diet?with?active?lifestyle?and?plenty?of?exercise (2) Essential hypertension: Code(s): I10 - Essential (primary) hypertension Plan: Blood?pressure?is?controlled.??Goal?is?less?than?130/80 Continue?current?medications (3) Sleep apnea: Code(s): G47.30 - Sleep apnea, unspecified Plan: Followed?by?pulmonary?medicine (4) Hyperlipidemia: Code(s): E78.5 - Hyperlipidemia, unspecified Plan: LDL?cholesterol?is?too?high.??Start?atorvastatin?20?mg?daily Will?follow-up?on?lipids?in?a?few?months (5) GERD (gastroesophageal reflux disease): Code(s): K21.9 - Gastro-esophageal reflux disease without esophagitis Plan: Patient?is?having?frequent?symptoms Trial?omeprazole (6) Screening for colon cancer: Comment: colonoscopy Code(s): Z12.11 - Encounter for screening for malignant neoplasm of colon Plan: Patient?says?she?has?a?follow-up?colonoscopy?in?November Follow-up?with?GI?as?recommended (7) Breast cancer screening by mammogram: Code(s): Z12.31 - Encounter for screening mammogram for malignant neoplasm of breast Plan: Last?mammogram?was?a?little?over?a?year?ago Mammogram?ordered (8) Screening for cervical cancer: Code(s): Z12.4 - Encounter for screening for malignant neoplasm of cervix Plan: No?recent?Pap?smear?or?manufacturer's representative?care.??Refer?to?[facility] [place]?manufacturer's representative (9) Aortic stenosis: Code(s): I35.0 - Nonrheumatic aortic (valve) stenosis Plan: Stable Continue?to?control?blood?pressure Avoid?salt/sodium Follow-up?with?Dr. Nagel as?recommended (10) Lower extremity edema: Code(s): R60.0 - Localized edema Plan: Elevate?legs?and?avoid?salt/sodium Continue?using?compression?stockings Orders: Orders Hemoglobin A1c Today E66.9 - Obesity, unspecified, R73.01 - Impaired fasting glucose Lipid Panel Today E78.5 - Hyperlipidemia, unspecified, Z00.00 - Encounter for general adult medical examination without abnormal findings T Spot TB Today Z11.1 - Encounter for screening for respiratory tuberculosis MM tomosynthesis screening BI Today Z12.31 - Encounter for screening mammogram for malignant neoplasm of breast Comprehensive [place]. Panel Fast Today E78.5 - Hyperlipidemia, unspecified, Z00.00 - Encounter for general adult medical examination without abnormal findings Referrals [employer] Referral Z12.4 - Encounter for screening for malignant neoplasm of cervix Medications: New omeprazole 20 mg PO DAILY 30 days 30 caps 3RF atorvastatin 20 mg PO BEDTIME 90 days 90 tabs 3RF Coding Level of Care Code Est Pt Level 3 (21876) Est Pt Prev Care 40-64y(86599) Diagnoses Adult general medical exam Z00.00 Essential hypertension I10 Sleep apnea G47.30 Hyperlipidemia E78.5 GERD (gastroesophageal reflux disease) K21.9 Screening for colon cancer Z12.11 Breast cancer screening by mammogram Z12.31 Screening for cervical cancer Z12.4 Aortic stenosis I35.0 Lower extremity edema R60.0 Additional Codes CHRISTIE-7 Assessment Billing - CHRISTIE-7 Assessment Tool: CHRISTIE-7 Assessment 26258 ([id number])
== END 2023-09-19 17:16 | disposition home or self-care (01) ==
PROVIDERS: PCP Family Medicine; Visit Provider Family Medicine
DX: Z00.00 Encounter for general adult medical examination without abnormal findings (principal); I10 Essential (primary) hypertension; G47.30 Sleep apnea, unspecified; E78.5 Hyperlipidemia, unspecified; R60.0 Localized edema; K21.9 Gastro-esophageal reflux disease without esophagitis; Z12.11 Encounter for screening for malignant neoplasm of colon; Z12.31 Encounter for screening mammogram for malignant neoplasm of breast; I35.0 Nonrheumatic aortic (valve) stenosis
CPT/HCPCS: 99213; 99396

== ENCOUNTER 2023-11-24 10:19 | Day surgery (SDC) | payer OTHER, SELFPAY ==
[2023-11-22 13:31] VITALS: BMI 40.5
--- NOTE | 2023-11-22 14:33 | P.CONAN_ITS ---
Documented by User: Chari Irizarry NP 11/23/23 10:11 HPI - Anesthesia Eval Consult details Narrative: 53yo F for Colonoscopy Follows [facility] Q2 years for bicuspid AV and mild dilation of asc aorta. Stable at 2022 visit. Due for repeat echo and visit 08/2024 [facility] Active Problems Active Problems: All Active Problems Lower extremity edema (Acute) Aortic stenosis (Acute) GERD (gastroesophageal reflux disease) (Acute) Screening for cervical cancer (Acute) Breast cancer screening by mammogram (Acute) Hyperlipidemia (Acute) Adult general medical exam (Acute) Sleep apnea (Acute) Urticaria (Acute) Murmur (Acute) Sessile serrated polyp of colon (Acute) Strain of foot, right (Acute) Morbid obesity (Acute) Elevated serum cholesterol (Acute) Perioral dermatitis (Acute) Colon adenomas (Acute) Diverticulosis of colon (Acute) Asthma, mild intermittent, well-controlled (Acute) Obesity (BMI 35.0-39.9 without comorbidity) (Acute) Well adult exam (Acute) Ascending aorta dilatation (Acute) Mild concentric left ventricular hypertrophy (LVH) (Acute) Essential hypertension (Acute) Screening for colon cancer (Acute) Past Medical History Medical History COVID COVID-19 vaccine series completed delivery delivered Varicose veins of both legs with edema AA (aortic aneurysm) Migraines Asthma Family History Family History Father Hypertension Colon polyps Mental health disorder Mother Hypertension Paternal Grandfather Colon cancer Child No Financial Resp Anxiety Family history of problems with anesthesia: No Surgical History Surgical History Hx of colonoscopy H/O medial meniscus repair of right knee History of cholecystectomy H/O tubal ligation History of Problems with Anesthesia: No Social History Social History Household Members Other:: , 14 y/o Housing: House Are you a primary child care attendant school to a significant other at home: No Do you presently have visiting nurse or other home services: No Patient Tobacco Use Status: Never used Tobacco e-Cigarette/Vaping Use: Never Used Second Hand Smoke Exposure: No Use of substances other than those prescribed or required for medical reasons: No Are you DNR?: No Advance Directives: No Advance Directives Information Provided: Yes Advance Directives on File: No Recently lost weight without trying: No Nutrition Risks: No Nutritional Risk service: No Current occupation: Nurse Cognitive needs: No Hearing needs: No Vision needs: Yes (Patient wears glasses.) Meds Allergies Allergy/AdvReac Type Severity Reaction Status Date / Time No Known Allergies Allergy Verified 09/19/23 16:01 Wet cold weather Allergy Intermediate urticaria Uncoded 09/19/23 16:01 Home Medications ?Medication ?Instructions ?Recorded ?Confirmed ?Last Taken ?Type epinephrine 0.3 mg/0.3 mL 1 IM DIRECTED PRN Allergic 03/18/20 09/19/23 Unknown History injection, auto-injector Reaction Exam Height,Weight and Vital Signs: Height 5 ft 6 in Weight 113.852 kg Narrative Narrative: ECHO 2022 Conc LVH. Nml RWM. EF 60%. Mild diastolic dysfunction Bicuspid AV Mild aortic stenosis, no insufficiency Thickend mitral valve. Trace insufficiency Dilation of the sinus of Valsalva, asc aorta, transverse aorta Unchanged from 2021 Assessment and Plan Final Anesthetic Review Family History of Problems with Anesthesia: No History of Problems with Anesthesia: No Documented by User: Wendy Salinas MD 11/24/23 12:04 [facility] Past Medical History Medical History COVID COVID-19 vaccine series completed delivery delivered Varicose veins of both legs with edema AA (aortic aneurysm) Migraines Asthma Family History Family History Father Hypertension Colon polyps Mental health disorder Mother Hypertension Paternal Grandfather Colon cancer Child No Financial Resp Anxiety Surgical History Surgical History Hx of colonoscopy H/O medial meniscus repair of right knee History of cholecystectomy H/O tubal ligation Social History Social History Household Members Other:: , 14 y/o Housing: House Are you a primary child care attendant school to a significant other at home: No Do you presently have visiting nurse or other home services: No Patient Tobacco Use Status: Never used Tobacco e-Cigarette/Vaping Use: Never Used Second Hand Smoke Exposure: No Use of substances other than those prescribed or required for medical reasons: No Are you DNR?: No Advance Directives: No Advance Directives Information Provided: Yes Advance Directives on File: No Recently lost weight without trying: No Nutrition Risks: No Nutritional Risk service: No Current occupation: Nurse Cognitive needs: No Hearing needs: No Vision needs: Yes (Patient wears glasses.) Meds Allergies Allergy/AdvReac Type Severity Reaction Status Date / Time No Known Allergies Allergy Verified 09/19/23 16:01 Wet cold weather Allergy Intermediate urticaria Uncoded 09/19/23 16:01 Home Medications ?Medication ?Instructions ?Recorded ?Confirmed ?Last Taken ?Type epinephrine 0.3 mg/0.3 mL 1 IM DIRECTED PRN Allergic 03/18/20 09/19/23 Unknown History injection, auto-injector Reaction Exam Airway Mallampati Class: II TM Dist: >3cm Heart: rrr Lungs: cta Assessment and Plan Assessment Anesthesia Assessment: Anesthesia Plan Discussed and Chart Reviewed Final Anesthetic Review NPO: Yes ASA Class: III Final Preanesthetic Review: No Changes in Pt Med Stat, Meds/Allgs Chart Reviewed, Consent Obtained/Reviewed and Anes Risks/Benef Reviewed Patient Risk: Intermediate Procedure Risk: Low Anesthetic Plan Anesthetic Plan: MAC: Disposition: Standard PACU
[2023-11-24 10:46] VITALS: BMI 40.2
[2023-11-24 10:51] VITALS: BP 111/70; PULSE 91; RESP 16; TEMP 37.2; O2SAT 96
[2023-11-24] MEDS: Lactated Ringers 1,000 ML 50 ML IVCONT (11:10)
--- NOTE | 2023-11-24 11:49 | MHC.SHP ---
Pre-Procedural Eval Section A - 24 Hr Update-Section A only Date of Service: 11/24/23 The patient is an INPATIENT: No The patient has been examined within 24 hours of the surgical procedure. The History & Physical has been completed within 30 days and I have reviewed it.: No Section B - Complete if H&P > 30 days Chief Complaint: Surveillance for colon polyps Relevant Family History (Specify if Yes): Yes Relevant Social History: None Present Medications: see Short Stay Collaborative assessment Medical History: Significant History ( delivery delivered Varicose veins of both legs with edema AA (aortic aneurysm) Migraines Asthma) History of Previous Operations: Relevant previous surgery/procedure and date(s) (Hx of colonoscopy H/O medial meniscus repair of right knee History of cholecystectomy H/O tubal ligation) Allergies: Allergies Allergy/AdvReac Type Severity Reaction Status Date / Time No Known Allergies Allergy Verified 09/19/23 16:01 Wet cold weather Allergy Intermediate urticaria Uncoded 09/19/23 16:01 Review of Systems Sugical H&P ROS: Negative: Cardiovascular, Respiratory, Neurological and Gastrointestinal Exam Surgical H&P Exam: Normal: Heart, Normal: Lungs, Normal: Extremities and Normal: Abdomen Plan Diagnosis/Plan: Unchanged I have reviewed the history and physical and performed a pertinent physical examination on my patient. No changes have occurred unless specified. Time Spent With Patient Time: Total time managing care of this patient today ____ minutes.
--- NOTE | 2023-11-24 12:37 | P.OPN-COLO_ITS ---
Colonoscopy Operative Note Operative Note Date of Service: 11/24/23 Narrative: COLONOSCOPY TILL CECUM WITH SNARE POLYPECTOMY Pre-op diagnosis: Surveillance for colon polyps. Post-op diagnosis:? colon polyp, Diverticulosis, hemorrhoids Endoscopist:? Melanie Muir MD Anesthesia:?MAC Consent: Indications for the procedure and potential complications of bleeding, perforation, reaction to medications and missed diagnosis were discussed with the patient and informed consent was obtained. Instrument: Olympus PCF H 190 L variable stiffness pediatric colonoscope Monitoring: Vital signs and clinical assessment, intermittent blood pressure monitoring, continuous EKG monitoring, Pulse oximetry and Carbon Dioxide monitoring were done throughout the procedure. Please see anesthesia flowsheet. Colon withdrawl time was 20 minutes. Procedure: The patient was placed in the left lateral decubitis position and pre-procedure medications were administered. After a digital rectal examination of the ano-rectum, the video colonoscope was inserted into the rectum and advanced through the colon to the cecum. The colonoscope was slowly withdrawn in a retrograde panoramic fashion and the colon mucosa was carefully examined including a retroflexed view of the rectum. Findings and interventions are described below. Procedure Difficulty: without difficulty Findings: Terminal Ileum: Not evaluated Cecum: Normal Ascending Colon: Normal Transverse Colon: Normal Descending Colon: Moderate diverticulosis Sigmoid Colon: A 7-8 mm sessile polyp - removed with a cold snare. Moderate diverticulosis Rectum: Normal Ano-rectum: Small internal hemorrhoids Colon preparation: Good after copious irrigation. [place] Bowel Preparation Scale Right colon; 2 Transverse colon: 2 Left colon; 2 (0 = Unprepared colon segment with mucosa not seen due to solid stool that cannot be cleared. 1 = Portion of mucosa of the colon segment seen, but other areas of the colon segment not well seen due to staining, residual stool and/or opaque liquid. 2 = Minor amount of residual staining, small fragments of stool and/or opaque liquid, but mucosa of colon segment seen well. 3 = Entire mucosa of colon segment seen well with no residual staining, small fragments of stool or opaque liquid) Impression and Post Procedure Diagnosis: Colonoscopy Findings: One small polyp was removed Moderate diverticulosis seen in the left colon Small hemorrhoids on retroflexed exam. Plan: I will send a letter with biopsy results Repeat Colonoscopy in 5 years if polyps are adenomatous and due to history of adenomatous colon polyps Above findings were reviewed with the patient and relevant handouts were given and the discharge area. Pt reported having nausea and vomiting after drinking half the prep and would like a different prep for her next colonoscopy.
[2023-11-24 12:38] VITALS: BP 103/66; PULSE 86; RESP 18; TEMP 37.1; O2SAT 97
[2023-11-24 12:53] VITALS: BP 109/68; PULSE 81; RESP 16; O2SAT 98
[2023-11-24 13:06] VITALS: BP 116/68; PULSE 67; RESP 16; TEMP 36.6; O2SAT 99
== END 2023-11-24 13:31 | disposition home or self-care (01) ==
PROVIDERS: PCP Family Medicine; Visit Provider Internal Medicine Gastroenterology
PROC: 0DJD8ZZ Inspection of Lower Intestinal Tract, Via Natural or Artificial Opening Endoscopic (ICD-10-PCS; CPT 45378; principal; 2023-11-24 12:00)
DX: Z12.11 Encounter for screening for malignant neoplasm of colon (principal); Z86.010 Personal history of colon polyps; K63.5 Polyp of colon; K57.30 Diverticulosis of large intestine without perforation or abscess without bleeding; K64.8 Other hemorrhoids; I10 Essential (primary) hypertension; I71.9 Aortic aneurysm of unspecified site, without rupture; E78.5 Hyperlipidemia, unspecified; G43.909 Migraine, unspecified, not intractable, without status migrainosus; J45.20 Mild intermittent asthma, uncomplicated; E66.9 Obesity, unspecified; Z68.41 Body mass index [BMI] 40.0-44.9, adult; Z68.35 Body mass index [BMI] 35.0-35.9, adult; Z79.899 Other long term (current) drug therapy; Z98.890 Other specified postprocedural states
CPT/HCPCS: 45385; 88305; J2704

== ENCOUNTER → 2023-11-24 10:19 | Outpatient (BNV) | payer OTHER, SELFPAY | PROVIDERS: PCP Family Medicine; Visit Provider Internal Medicine Gastroenterology | DX: Z12.11 Encounter for screening for malignant neoplasm of colon (principal); Z86.010 Personal history of colon polyps; K63.5 Polyp of colon; K57.90 Diverticulosis of intestine, part unspecified, without perforation or abscess without bleeding; K64.8 Other hemorrhoids | CPT/HCPCS: 45385 ==

== ENCOUNTER 2024-01-16 14:37 | Outpatient (REF) | payer OTHER, SELFPAY ==
--- NOTE | ~2024-01-16 | MM_ITS ---
EXAMINATION: MM SCREENING DIGITAL BREAST TOMOSYNTHESIS, BILATERAL CLINICAL INFORMATION: Screening. Asymptomatic. COMPARISON: Mammography: Comparison is made with available priors TECHNIQUE: Digital breast mammography with tomosynthesis is performed in both the craniocaudal and mediolateral oblique views along with computer-aided detection (CAD). FINDINGS: There are scattered areas of fibroglandular density (ACR BI-RADS breast composition Category b). There are no significant masses, abnormal calcifications, or other abnormalities. MM/MM tomosynthesis screening BI IMPRESSION: No mammographic evidence of malignancy. ASSESSMENT: BI-RADS BI-RADS 1 - Negative RECOMMENDATION: Routine annual mammography screening. 1 year F/U This examination should not preclude the clinical evaluation of a suspicious palpable abnormality. This patient's information was entered into a reminder system with a target due date for their next mammogram. Electronically signed by: Lidia Tao DO 01/24/2024 03:58 PM [facility]
== END 2024-01-16 14:38 | disposition home or self-care (01) ==
LOC: HO.MAMMO 14:37
PROVIDERS: PCP Family Medicine; Visit Provider Family Medicine
DX: Z12.31 Encounter for screening mammogram for malignant neoplasm of breast (principal)
CPT/HCPCS: 77063; 77067

== ENCOUNTER → 2024-01-16 14:45 | Outpatient (BNV) | payer OTHER, SELFPAY | PROVIDERS: PCP Family Medicine; Visit Provider Internal Medicine | DX: Z12.31 Encounter for screening mammogram for malignant neoplasm of breast (principal) | CPT/HCPCS: 77063; 77067 ==

== ENCOUNTER 2024-09-03 11:19 | Outpatient (REF) | payer OTHER, SELFPAY ==
[2024-09-03 19:11] LABS: Leukocytes Stool Qualitative NEGATIVE (NEGATIVE)
== END 2024-09-03 11:20 | disposition home or self-care (01) ==
LOC: HO.LNP 11:19
PROVIDERS: PCP Family Medicine; Visit Provider Internal Medicine
DX: K52.9 Noninfective gastroenteritis and colitis, unspecified (principal); K57.30 Diverticulosis of large intestine without perforation or abscess without bleeding; Z13.31 Encounter for screening for depression; Z13.30 Encounter for screening examination for mental health and behavioral disorders, unspecified
CPT/HCPCS: 89055; 96127

== ENCOUNTER 2024-09-03 11:19 | Outpatient (AMB) | payer OTHER, SELFPAY ==
--- NOTE | 2024-09-03 11:23 | A.OFFPC_ITS ---
Vital Signs 09/03/24 11:27 Height 5 ft 6 in Weight 213 lb 8 oz BMI 34.5 BP 124/55 L Blood Pressure Location Lt brachial Position Sitting Respiration 16 Pulse 80 Pulse Source Pulse Oximeter Temp 98.9 F Temp Source Oral Pulse Oximetry (%) 98 Oxygen Delivery Method Room Air Intake Visit Reasons: Fever & Stomach Intake Note: Symptoms started Monday. Fever, chills, and body aches. Fever up to 103 monday. Fever came back Monday and vomiting, stomach pain left side. Fever 102.7 last night. Diarrhea on and Monday, and this morning. covid test Monday morning negative. Allergies atorvastatin Allergy (Unknown, Verified 09/03/24 11:32) Muscle cramps Wet cold weather Allergy (Intermediate, Uncoded 09/03/24 11:31) urticaria Tobacco use date assessed: 07/14/23 Dental Screening Dental Screen Date: 09/03/24 Did you have a dental visit in the last 12 months?: Yes Did you have a dental problem in the last 6 months where you did not have access to dental care?: No Was dental information given to patient?: Patient has dentist HPI HPI Comments History of Present Illness Details the patinet is a 54 year old female with a past medical history of htn, GERD presenting for sick symptoms 5 days ago patient developed loose frequ ent watery stools, body aches. Developed fever, chills. Fever up to 103 monday, continued Monday. A few epsiodes of vomiting. Abdominal pain initally diffuse now left upper quadrant. Fever 102.7 last night. covid test Monday morning negative. No blood in the urine or stool. Denies dysuria. History of divertulosis. ROS see HPI PHYSICAL EXAM: GENERAL: Alert and oriented x 3. NAD EYES: EOMI. Anicteric. HENT: Moist mucous membranes. No scleral icterus. No cervical lymphadenopathy. LUNGS: Clear to auscultation bilaterally. CARDIOVASCULAR: Regular rate and rhythm. + murmur. No JVD. ABDOMEN: Soft, ttp diffuse >LUQ. No G/R/R EXTREMITIES: No edema. Non-tender. SKIN: No rashes or lesions. Warm. NEUROLOGIC: No focal neurological deficits. CN II-XII grossly intact PSYCHIATRIC: Cooperative. Appropriate mood and affect [facility] Medical History COVID COVID-19 vaccine series completed delivery delivered Varicose veins of both legs with edema AA (aortic aneurysm) Migraines Asthma Surgical History Hx of colonoscopy H/O medial meniscus repair of right knee History of cholecystectomy H/O tubal ligation Family History Father Hypertension Colon polyps Mental health disorder Mother Hypertension Paternal Grandfather Colon cancer Child No Financial Resp Anxiety Social History (Updated 09/03/24 @ 11:47 by Erin Goyal CMA) Household Members Other:: , 14 y/o Housing: House Are you a primary career guidance counselor to a significant other at home: No Do you presently have visiting nurse or other home services: No Alcohol intake: current Alcohol intake frequency: holidays/special occasions only Patient Tobacco Use Status: Never used Tobacco e-Cigarette/Vaping Use: Never Used Second Hand Smoke Exposure: No Use of substances other than those prescribed or required for medical reasons: No service: No Current occupation: Nurse Cognitive needs: No Hearing needs: No Vision needs: Yes (Patient wears glasses.) Questionnaire PHQ-9 Over the last 2 weeks, how often have you been bothered by any of the following problems? 1. Little interest or pleasure in doing things: not at all 2. Feeling down, depressed, or hopeless: not at all 3. Trouble falling or staying asleep, or sleeping too much: more than half the days 4. Feeling tired or having little energy: several days 5. Poor appetite or overeating: several days 6. Feeling bad about yourself - or that you are a failure or have let yourself or your family down: not at all 7. Trouble concentrating on things, such as reading the newspaper or watching television: several days 8. Moving or speaking so slowly that other people could have noticed. Or the opposite - being so fidgety or restless that you have been moving around a lot more than usual: not at all 9. Thoughts that you would be better off or of hurting yourself in some way: not at all Total score: 5 Depression Screening Interpretation: Positive Depression Screening Follow-up: Declines treatment Depression Screening Done: Yes 34398 - PHQ-9 Billing: Yes Source: Developed by Drs. Porter Kasper, Leila Dacosta, Errol Leung and colleagues, with an educational summer from [employer]. Thrive Questionnaire Date Thrive assessed: 09/03/24 I am a: Patient What is your living situation today?: I have a steady place to live Within the past 12 months, did the food you bought not last and you didn't have the money to get more?: Never true Within the past 12 months, did you worry whether your food would run out before you got money to buy more?: Never true Do you have trouble paying for medicines?: No Do you have trouble getting transportation to medical appointments?: No Do you have trouble paying your heating and electricity bill?: No Do you have trouble taking care of your child, family member or friend?: No Do you have trouble with day-to-day activities such as bathing, preparing meals, shopping, managing finances, etc.?: No Are you currently unemployed and looking for a job?: No Are you interested in more education?: No Please select the resources that you would like help with: None Currently or been in a relationship where the following occur: No concerns reported THRIVE Score: 0 AUDIT C Alcohol Use Questionnaire (AUDIT-C) 1. How often do you have a drink containing alcohol?: Monthly or less 2. How many drinks containing alcohol do you have on a typical day when you are drinking?: 1 or 2 3. How often do you have six or more drinks on one occasion?: Never Total Score: 1 CHRISTIE-7 AMB Questionnaire CHRISTIE-7 Date CHRISTIE - 7 assessed: 09/03/24 Feeling nervous, anxious, or on edge: 0 = Not at all Not being able to stop or control worryin = Not at all Worrying too much about different things: 0 = Not at all Trouble relaxin = Not at all Being so restless that it is hard to sit still: 0 = Not at all Becoming easily annoyed or irritable: 0 = Not at all Feeling afraid as if something awful might happen: 0 = Not at all Total CHRISTIE-7 score (0-4 normal; 5-9 mild; 10-14 moderate; 15-21 severe): 0 Source: Developed by Drs. Porter Kasper, Leila Dacosta, Errol Leung and colleagues, with an educational summer from [employer]. CHRISTIE-7 Assessment Billing CHRISTIE-7 Assessment Tool: CHRISTIE-7 Assessment 03120 Physical exam (Primary Care) Vital Signs: Last Vital Signs Temp 98.9 F 09/03/24 11:27 Pulse 80 09/03/24 11:27 Resp 16 09/03/24 11:27 BP 124/55 L 09/03/24 11:27 Pulse Ox 98 09/03/24 11:27 Oxygen Delivery Method Room Air 09/03/24 11:27 BMI result Body Mass Index 34.5 Tobacco/Smoking Status: Tobacco use Status Tobacco use date assessed 07/14/23 09/03/24 11:24 Patient Tobacco Use Status Never used Tobacco 09/03/24 11:47 e-Cigarette/Vaping Use Never Used 09/03/24 11:47 PHQ-9: PHQ-9 Score PHQ-9: Total score 5 09/03/24 11:48 Depression Screening Interpretation: Positive Depression Screening Follow-up: Declines treatment Thrive Assessment: Date of Thrive Assessment Date Thrive assessed 09/03/24 09/03/24 11:24 Currently or been in a relationship where the following occur: No concerns reported Coding Level of Care Code Est Pt Level 4 (18019) Complex EM visit Add On G2211 Diagnoses Gastroenteritis K52.9 Diverticulosis of colon K57.30 Diarrhea of presumed infectious origin R19.7 Diarrhea type: presumed infectious Additional Codes CHRISTIE-7 Assessment Billing - CHRISTIE-7 Assessment Tool: CHRISTIE-7 Assessment 06015 ([id number]) PHQ-9 - 33711 - PHQ-9 Billing: Yes ([id number]) Assessment & Plan Assessment & Plan (1) Gastroenteritis: Code(s): K52.9 - Noninfective gastroenteritis and colitis, unspecified Category: Medical (2) Diverticulosis of colon: Comment: Repeat asymptomatic colonoscopy 3 years sooner if indicated All first-degree relatives should begin screening at age 40 Code(s): K57.30 - Diverticulosis of large intestine without perforation or abscess without bleeding Category: Medical (3) Diarrhea: Code(s): R19.7 - Diarrhea, unspecified Category: Medical Qualifiers: Diarrhea type: presumed infectious Qualified Code(s): R19.7 - Diarrhea, unspecified Plan 54 year old with h/o diverticulosis with fevers, acute diarrhea, fevers, weight loss. Labs, CT ordered Orders: Orders Complete Blood Count Auto Diff Today K52.9 - Noninfective gastroenteritis and colitis, unspecified, K57.30 - Diverticulosis of large intestine without perforation or abscess without bleeding, R50.9 - Fever, unspecified Comprehensive Met. Panel Today K52.9 - Noninfective gastroenteritis and colitis, unspecified, K57.30 - Diverticulosis of large intestine without perforation or abscess without bleeding, R50.9 - Fever, unspecified Erythrocyte Sedimentation Rate Today K52.9 - Noninfective gastroenteritis and colitis, unspecified, K57.30 - Diverticulosis of large intestine without perforation or abscess without bleeding, R50.9 - Fever, unspecified Lyme IgG/IgM w/reflex to WB Today K52.9 - Noninfective gastroenteritis and colitis, unspecified, K57.30 - Diverticulosis of large intestine without perforation or abscess without bleeding, R50.9 - Fever, unspecified Hepatitis A,B,C Profile Today K52.9 - Noninfective gastroenteritis and colitis, unspecified, K57.30 - Diverticulosis of large intestine without perforation or abscess without bleeding, R50.9 - Fever, unspecified Leukocytes Stool Qualitative Today K52.9 - Noninfective gastroenteritis and colitis, unspecified, K57.30 - Diverticulosis of large intestine without perforation or abscess without bleeding, R50.9 - Fever, unspecified CT abdomen pelvis w IV con Today K52.9 - Noninfective gastroenteritis and colitis, unspecified, K57.30 - Diverticulosis of large intestine without perforation or abscess without bleeding, R50.9 - Fever, unspecified SARS-CoV2/FLU/RSV Today R19.7 - Diarrhea, unspecified
[2024-09-03 11:27] VITALS: BP 124/55; PULSE 80; RESP 16; TEMP 37.2; O2SAT 98; BMI 34.5
--- OUTSIDE RECORDS SUMMARY | 2024-09-03 12:35 | XMS_ITS | Clinical Summary ---
Author Organization [address] [place] [address] Address [address] [place] [address] Phone Care Team Providers Care Customer Care Voice Consultant Name Role Phone Neela Winkler JAVA WEB ENGINEER Primary Care Provider [phone] Allergies No known active allergies Medications albuterol HFA (PROAIR HFA ; PROVENTIL HFA ; VENTOLIN HFA) 90 mcg/actuation inhaler Inhale 2 Puffs into the lungs every 4 hours as needed for Cough or Wheezing. 05/07/2019 Active EPINEPHrine (EpiPen 2-Gold) 0.3 mg/0.3 mL injection Inject 1 Each as directed as needed (anaphylaxis) . 05/07/2019 Active hydroCHLOROthia zide (HYDRODIURIL) 25 mg tablet Take 1 tablet (25 mg total) by mouth 1 (one) time each day in the morning. 08/04/2022 Active lisinopriL (PRINIVIL,ZESTR IL) 10 mg tablet Take 1.5 mg by mouth daily. Active Active Problems Problem Noted Date Diagnosed Date Bicuspid aortic valve 08/11/2020 Overview (02/19/2024): Last Assessment & Plan: Patient with a history of bicuspid aortic valve I discussed the patient's findings with her. There is no evidence of coarctation on exam. I discussed with her the connection between her bicuspid valve and dilatation of the ascending aorta. We will continue to monitor the valve is level stenosis into the fact likely dilatation of the thoracic aorta. Patient is on appropriate medical therapy with blood pressure management. There is no family history of connective tissue disease Thoracic aortic ectasia ([facility] V24) 08/07/2020 Cardiomegaly 08/07/2020 Aortic aneurysm ([facility] V24) 05/09/2019 Overview (02/19/2024): Ascending aorta 3/9cm may 2019 Last Assessment & Plan: Patient with a history bicuspid aortic valve with no significant signs of progression patient with a history of millet mild dilatation of the ascending aorta with no signs of progression. She been here has been controlling her hypertension which is well controlled at this time. Recommend repeating echocardiogram in 2 years Elevated glucose 11/26/2013 Dysplastic nevus 07/26/2010 Overview (02/19/2024): Dysplastic nevus 07/14 right ankle (mild atypia) Headache 01/18/2007 Lumbago 01/18/2007 Asthma 07/28/2005 Obesity (BMI 30-39.9) 07/28/2005 Encounters Date Type Department Care Team Description 08/26/2024 7:00 AM EDT Ancillary Procedure [facility] [address] [place] [address] Aortic aneurysm without rupture, unspecified portion of aorta ([facility] V24) from Last 3 Months Immunizations Name Administration Dates Next Due Hepatitis B (Hqnogxq-Y-Dnepj , Recombivax HB-Adult) 19yo and older 12/18/1991,11/15/1991,08/09/1989 Influenza trivalent, 0.5mL, preservative free (Fluarix; FluLaval; Fluzone) ages 6mo and older (Afluria) 3 years and older 11/15/2013,12/09/2010 Influenza, Unspecified 11/20/2019 MMR, measles mumps and rubel la Live (Priorix; M-M-R II) 12mo and older 05/25/2011,10/30/1987 Measles 07/25/1989 Pneumococcal polysaccharide 23 valent (Pneumovax 23) 2yo and older 07/18/2011 Rubella 12/28/1990 Td Tetanus diptheria (Tdvax) 7yo and older 09/13 Tdap Tetanus diptheria acell ular pertussis (Boostrix; Adacel) 7yo and older 05/10/2010 Varicella live (Varivax) 12mo and older 05/14/18 98 Zoster Live 11/20/2019 Surgical History Surgery Date Site/Laterality Comments CHOLECYSTECTOMY 2001 PROCEDURE: HISTORICAL CHOLECYSTECTOMY; COMMENT: Lap chol SECTION 1991. 2005 PROCEDURE: [place] DELIVERY ONLY; COMMENT: x2 TUBAL LIGATION March 2011 PROCEDURE: HISTORICAL TUBAL LIGATION Medical History Medical History Date Comments Overweight(278.02) DX:Overweight (278.02) Acute bronchitis DX:Acute bronch itis; COMMENT: mild Unspecified asthma(493.90) DX:Un specified asthma(493.90) Lumbago 01/18/2007 DX:Lumbago Headache(784.0) 01/18/2007 DX:Headache(784. 0) Dysplastic nevus 07/26/2010 DX:Dysplastic n evus Elevated glucose 11/26/2013 DX:Elevated glu cose Aortic aneurysm (CMS/HCC V24) 05/09/2019 DX :Aortic aneurysm (HCC); COMMENT: Ascending aorta 3/9cm may 2019 Varicose veins of both legs with edema DX:Varicose veins of both legs with edema Migraines DX:Migraines Family History Medical History Relation Name Comments Diabetes Brother 1 Hypertension Brother 1 Other: embolis Brother 2 Hypertension Father Other: cirrhosis Maternal Grandmother Hypertension Mother Other: cholecystectomy Mother Colon cancer Paternal Grandfather Glaucoma Paternal Grandfather Relation Name Status Comments Brother 1 Brother 2 Brother 3 Alive 2 healthy x 1 b lood clot PE Daughter Alive 2 Healthy x 1 b ulemia Father Alive Healthy x HTN Maternal Grandfather DM. ETO H, PVD Maternal Grandmother alzheim ers Mother Alive Healthy x htn Paternal Grandfather Colon c ancer - young Paternal Grandmother cirrhos is - alcohol Social History Tobacco Use Types Packs/Day Years Used Date Smoking Tobacco: Never Smokeless Tobacco: Never Alcohol Use Standard Drinks/Week Comments Not Currently 0 (1 standard drink = 0.6 oz pur e alcohol) Comments Unknown Sex and Gender Information Value Date Recorded Sex Assigned at Not on file Legal Sex Female 7:19 PM EST Gender Identity Not on file Sexual Orientation Not on file Obstetrics History Last Filed Vital Signs Vital Sign Reading Time Taken Comments Blood Pressure 126/70 08/26/2024 7:07 AM EDT Pulse 100 08/16/2022 10:05 AM EDT Temperature - - Respiratory Rate - - Oxygen Saturation - - Inhaled Oxygen Concentration - - Weight 98 kg (216 lb) 08/26/2024 7:07 AM EDT Height 167.6 cm (5' 6 ) 08/26/2024 7:07 AM EDT Body Mass Index 34.86 08/26/2024 7:07 AM EDT Plan of Treatment Health Maintenance Due Date Last Done Comments Cervical Cancer Screening: Pap Smear 02/23/1989 Hepatitis B Vaccines (3 of 3 - 19+ 3-dose series) 02/12/1992 12/18/1991, 11/15/1991, 08/09/1989 Pneumococcal Vaccine: 50+ Years (2 of 2 - PCV) 07/17/2012 07/18/2011 Pneumococcal Vaccine: Pediatrics (0 to 5 Years) and At-Risk Patients (6 to 64 Years) (2 of 2 - PCV) 07/17/2012 07/18/2011 Zoster Vaccines (2 of 2) 07/15/2020 021, 11/20/2019, 05/14/1997 Breast Cancer Screening 03/27/2021 03/27/2019 Colorectal Cancer Screening: Colonoscopy 02/05/2022 Depression Screening 02/05/2022 Hepatitis C Screening 02/05/2022 Social Influencers of Health Screening 02/05/2022 Cholesterol Screening (Lipid Panel) 03/11/2024 03/11/2019 COVID-19 Vaccine (8 - Pfizer risk ) 08/15/2024 02/15/2024, 12/12/2022, 01/19/2022, Additional history exists DTaP,Tdap,and Td Vaccines (4 - Td or Tdap) 04/23/2030 04/23/2020, 05/10/2010, 09/13/2004 Varicella Vaccines Aged Out 05/14/1997 No longer eligible based on patient's age to complete this topic HIV Screening Completed 09/13/2004 MMR Vaccines Aged Out 05/25/2011, 10/30/1987 No lo nger eligible based on patient's age to complete this topic Influenza Vaccine Completed 12/29/2023, , 10/29/2021, Additional history exists HIB Vaccines Aged Out No longer eligi ble based on patient's age to complete this topic HPV Vaccines Aged Out No longer eligi ble based on patient's age to complete this topic Hepatitis A Vaccines Aged Out No long er eligible based on patient's age to complete this topic IPV Vaccines Aged Out No longer eligi ble based on patient's age to complete this topic Meningococcal ACWY Vaccine Aged Out N o longer eligible based on patient's age to complete this topic Meningococcal B Vaccine Aged Out No l onger eligible based on patient's age to complete this topic RSV Immunization Patients Under 20 months Aged Out No longer eligible based on patient's age to complete this topic Procedures Procedure Name Priority Date/Time Associated Diagnosis Comments TRANSTHORACIC ECHOCARDIOGRAM (TTE) COMPLETE Routine 08/26/2024 7:50 AM EDT Aortic aneurysm without rupture, unspecified portion of aorta (CMS/HCC V24) SCR MAMMO BI INCL CAD Routine 03/27/2019 4:06 PM EST Encounter for other screening for malignant neoplasm of breast LIPID PANEL Routine 03/11/2019 HIV SCREENING Routine 09/13/2004 from Last 3 Months or Most Recently Relevant to Health Maintenance Results * (ABNORMAL) TRANSTHORACIC ECHOCARDIOGRAM (TTE) COMPLETE (08/26/2024 7:50 AM EDT) Left Atrium Minor [place] 5.7 cm CV PACS Left Atrium Major [place] 5.7 cm CV PACS LA Area Sys (A2C) 24 cm2 CV PACS LA Area Sys (A4C) 17 cm2 CV PACS LA Volume (BP) 56 mL CV PACS RA Area 15.6 cm2 CV PACS RA 2D Volume 40 mL CV PACS AV Mean Gradient 26 mmHg CV PACS Ao VTI 83.3 cm CV PACS AV Peak Lucian 3.3 m/s CV PACS AV Peak Gradient 43 mmHg CV PACS AV Area Continuity Equation 1.1 cm2 CV PACS AV Area Peak Velocity 1.1 cm2 CV PACS Aortic Sinus Valsalva 3.0 cm CV PACS Ascending Aorta 4.2 cm CV PACS IVC Proximal 1.6 cm CV PACS IVSD 1.1(A) 0.6 - 0.9 cm CV PACS LVIDD 4.7 3.8 - 5.2 cm CV PACS LVIDS 2.9 2.2 - 3.5 cm CV PACS LVOT Diameter 2.3 cm CV PACS LVOT Mean Lucian 0.7 m/s CV PACS LVOT Mean Grad 2 mmHg CV PACS LVOT Mean Grad 2 mmHg CV PACS LVOT Peak VTI 21.8 cm CV PACS LVOT Peak Lucian 0.9 m/s CV PACS LVOT Peak Gradient 3 mmHg CV PACS LVPWD 0.9 0.6 - 0.9 cm CV PACS MV E' Tissue Velocity Lateral 10 cm/s CV PACS MV E' Tissue Velocity Septal 9 cm/s CV PACS LVOT Area 4.2 cm2 CV PACS LVOT Stroke Volume 90 mL CV PACS MV Deceleration [place] 2.9 m/s2 CV PACS E Wave Deceleration Time 220 119 - 242 ms CV PACS MV PHT 64 ms CV PACS MV Peak A Lucian 0.71 m/s CV PACS MV Peak E [place]ian 0.63 m/s CV PACS MV Area PHT 3.4 cm2 CV PACS PV Acceleration Time 95 ms CV PACS PV Acceleration Time 95 ms CV PACS PV Peak Velocity 0.8 m/s CV PACS PV Peak Gradient 3 mmHg CV PACS RV Diastolic Basal Dimension 3.9 2.5 - 4.1 cm CV PACS TAPSE 20 mm CV PACS TR Peak Velocity 1.89 m/s CV PACS TR Peak Gradient 14 mmHg CV PACS E/E' Ratio Septal 7 CV PACS E/E' Ratio Averaged 7 CV PACS LVOT Stroke Index 43 mL/m2 CV PACS Relative Wall Thickness ratio 0.38 CV PACS LVOT:AV VTI Index 0.26 CV PACS FS 38 % CV PACS LV Mass 2D 164 g CV PACS Ascending Aorta Index 2.03 cm/m2 CV PACS LVOT flow 291 mL/s CV PACS RA 2D Volume Index 19 mL/m2 CV PACS FERMÍN Index (VTI) 0.53 cm2/m2 CV PACS FERMÍN Index (Pk Lucian) 0.53 cm2/m2 CV PACS LVIDD Index 2.27 cm/m2 CV PACS LVIDS Index 1.40 cm/m2 CV PACS AV Velocity Ratio 0.27 CV PACS E/A Ratio 0.9 CV PACS E/E' Ratio Lateral 6 CV PACS LA Volume Index (BP) 27 mL/m2 CV PACS LV Mass Index 2D 79 g/m2 CV PACS BSA 2.14 m2 CV PACS Right Ventricular Peak Systolic Pressure 17 mmHg CV PACS Est. RA Pressure 3 mmHg CV PACS Anatomical Region Laterality Modality Ultrasound Narrative 08/26/2024 6:30 PM EDT Left ventricle cavity size is normal. Left ventricular systolic function is in the normal range with an ejection fraction of 60-65%. No regional LV wall motion abnormalities noted. Left ventricle wall thickness is normal. Right ventricle cavity is normal. Right ventricular systolic function is normal. Aortic valve demonstrates moderate stenosis with a 26 mmHg mean gradient increased from 13 mmHg on the previous study Aortic valve is bicuspid. Aortic valve leaflets are mildly thickened. The Sinus of Valsalva is dilated (3.0 cm). The ascending aorta is dilated (4.2 cm). Left Ventricle Left ventricle cavity size is normal. Wall thickness is normal. Systolic function is normal with an ejection fraction of 60-65%. There are no regional LV wall motion abnormalities. Right Ventricle Right ventricle cavity appears normal. Systolic function is normal. Left Atrium Left atrium cavity size is normal. Right Atrium Right atrium cavity is normal. Mitral Valve The leaflets are mildly thickened. There is trace regurgitation. There is no evidence of mitral valve stenosis. Tricuspid Valve Tricuspid valve structure is normal. There is trace regurgitation. There is no evidence of tricuspid valve stenosis. Aortic Valve The aortic valve is bicuspid. The leaflets are mildly thickened. There is no regurgitation. There is mild stenosis. Pulmonic Valve Visualized portions of the pulmonic valve appear normal. No significant pulmonic valve regurgitation. There is no evidence of pulmonic valve stenosis. Ascending Aorta The Sinus of Valsalva is (3.0 cm). The ascending aorta is (4.2 cm). Pericardium Pericardium appears normal. Study Details Overall the study quality was adequate. us Sancho Christian MD CV ECHO PROCEDURES Final Resul t * SCR MAMMO BI INCL CAD (03/27/2019 4:06 PM EST) Anatomical Region Laterality Modality Radiographic Shirin ging 03/04/2019 9:48 AM EST Narrative 03/28/2019 1:27 PM EST This is a summary report. The complete report is available in the patient's medical record. If you cannot access the medical record, please contact the sending organization for a detailed fax or copy. Full field digital screening mammography, reviewed with CAD and compared to previous mammogram of 02/04/2015. The breasts are composed of fatty and fibroglandular tissue. No suspicious mass, architectural distortion or suspicious calcifications are identified. IMPRESSION: : No mammographic evidence of malignancy. BIRADS 1-Negative; N. 5 year breast cancer risk assessment 1.0 % Lifetime breast cancer risk assessment 8.7 % Breast cancer risk category Low (<15%) Procedure Note Herrera Stephanie - 02/22/2022 This is a summary report. The complete report is available in thepatient's medical record. If you cannot access the medical record, pleasecontact the sending organization for a detailed fax or copy. Full field digital screening mammography, reviewed with CAD and comparedto previous mammogram of 02/04/2015. The breasts are composed of fatty andfibroglandular tissue. No suspicious mass, architectural distortion orsuspicious calcifications are identified. IMPRESSION: : No mammographic evidence of malignancy. BIRADS 1-Negative; N. 5 year breast cancer risk assessment 1.0 % Lifetime breast cancer risk assessment 8.7 % Breast cancer risk category Low (<15%) Zoraida Perez MD IMG XR PROCEDURES Fi nal Result * (ABNORMAL) Lipid panel (03/11/2019) [facility] LDL/HDL Ratio 4 0 - 4 Triglycerides 111 0 - 150 mg/dL Cholesterol 224(A) 0 - 200 mg/dL HDL 54 >=40 mg/dL LDL Cholesterol 148(A) 0 - 100 mg/dL Blood Venous blood specimen / Unknown Historical Provider LAB BLOOD ORDERABLES Anna l Result * Hm HIV Screening (09/13/2004) HIV Screening abstracted us Historical Provider HEALTH MAINTENANCE Final Result from Last 3 Months or Most Recently Relevant to Health Maintenance Insurance [facility] [address] [place] [address] Care Teams Customer Care Voice Consultant Relationship Specialty Start Date End Date Neela Winkler NP [address] [place] [id number] [address] [place] [address] PCP - General 05/20/22
== END 2024-09-03 12:04 | disposition home or self-care (01) ==
LOC: HO.HMCFM 11:20
PROVIDERS: PCP Family Medicine; Visit Provider Internal Medicine
DX: K52.9 Noninfective gastroenteritis and colitis, unspecified (principal); K57.30 Diverticulosis of large intestine without perforation or abscess without bleeding

== ENCOUNTER 2024-09-03 12:47 | Outpatient (REF) | payer OTHER, SELFPAY ==
[2024-09-03 14:52] LABS: MANUAL DIFF FLAG NO
[2024-09-03 14:55] LABS: Hematocrit 40.1 % (37.0-47.0); Hemoglobin 13.3 g/dl (12.0-16.0); Imm Gran Abs Auto 0.01 X10*3/uL (0.00-0.03); Imm Gran Pct Auto 0.2 % (0.0-0.4); Lymphocytes Absolute Auto 1.4 X10*3/uL (1.2-4.9); Mean Corpuscular HGB Conc 33.2 g/dl (31.0-35.0); Mean Corpuscular Hemoglobin 29.2 pg (27.0-33.0); Mean Corpuscular Volume 87.9 fL (80.0-98.0); NRBC Abs Auto 0.000 X10*3/uL (0.0-0.012); NRBC Pct Auto 0.0 /100WBC (0.0-0.2); Platelet Count 214 X10*3/uL (160-400); Red Blood Count 4.56 X10*6/uL (4.20-5.50); White Blood Count 4.3 X10*3/uL (4.8-10.8)
[2024-09-03 15:21] LABS: Alanine Aminotransferase 58 U/L (0-31); Albumin Level 4.4 g/dL (3.5-5.0); Alkaline Phosphatase 95 U/L (39-117); Anion Gap 13 (12-20); Aspartate Amino Transferase 36 U/L (5-31); Blood Urea Nitrogen 9 mg/dL (9-16); Calcium 9.5 mg/dL (8.4-10.2); Carbon Dioxide 31 mmol/L (22-29); Chloride 97 mmol/L (96-108); Estimated Glomerular Filt Rate > 60; Potassium 3.3 mmol/L (3.3-5.1); Sodium 138 mmol/L (135-145); Total Protein 7.2 g/dL (6.5-8.0)
[2024-09-03 15:22] LABS: Resp Syncy Virus RNA Qual PCR NEGATIVE (Negative); SARS COV2 PCR INHOUSE NEGATIVE (Negative)
[2024-09-04 08:12] LABS: HBS Num1 23.85 mIU/mL (0-7.99); HBc Num1 0.18 S/CO (0.00-0.79); HBsAGNum1 0.26 S/CO (0.00-0.99); Hepatitis B Surface Antigen Negative (Negative); ~HepC Num1 0.11 S/CO (0.00-0.79); ~Hepatitis B Surface Antibody REACTIVE (Nonreactive); ~Hepatitis C Antibody Nonreactive (Nonreactive)
[2024-09-04 08:28] LABS: Hepatitis A Antibody IgM 0.20 Index (0-0.79); ~Hepatitis A Antibody IgM Nonreactive (Nonreactive)
[2024-09-04 12:33] LABS: Lyme Abs Screen <0.90 index
== END 2024-09-03 12:48 | disposition home or self-care (01) ==
LOC: HO.WFDLDS 12:47
PROVIDERS: Visit Provider Internal Medicine
DX: K57.30 Diverticulosis of large intestine without perforation or abscess without bleeding (principal); R50.9 Fever, unspecified; K52.9 Noninfective gastroenteritis and colitis, unspecified
CPT/HCPCS: 36415; 80053; 85025; 85652; 86617; 86618; 86704; 86706; 86709; 86803; 87340; 87637

== ENCOUNTER 2024-09-11 08:18 | Outpatient (REF) | payer OTHER, SELFPAY ==
--- OUTSIDE RECORDS SUMMARY | 2024-09-11 08:25 | XMS_ITS | Clinical Summary ---
Author Organization [address] [place] [address] Address [address] [place] [address] Phone Care Team Providers Care Public Improvement Inspector Name Role Phone Neela Winkler PARIMUTUEL CASHIER Primary Care Provider Allergies No known active allergies Medications albuterol [...] of connective tissue disease Thoracic aortic ectasia ([facility] V24) 08/07/2020 Cardiomegaly 08/07/2020 Aortic aneurysm ([facility] V24) 05/09/2019 Overview (02/19/2024): Ascending aorta 3/9cm [...] Description 08/26/2024 7:00 AM EDT Ancillary Procedure [facility] [address] [place] [address] Aortic aneurysm without rupture, unspecified portion of aorta ([facility] V24) from Last 3 Months Immunizations Name Administration Dates Next Due Hepatitis B (Nfanqzb-E-Nheir , Recombivax HB-Adult) 19yo and older 12/18/1991,11/15/1991,08/09/1989 [...] COMMENT: Lap chol SECTION 1991. 2005 PROCEDURE: [place] DELIVERY ONLY; COMMENT: x2 TUBAL LIGATION March [...] 03/11/2019 COVID-19 Vaccine (8 - Pfizer risk season) 2024 02/15/2024, 12/12/2022, 01/19/2022, Additional history exists Influenza Vaccine (#1) 2024 , 12/12/2022, 10/29/2021, Additional history exists DTaP,Tdap,and Td Vaccines (4 - Td or Tdap) 04/23/2030 04/23/2020, 05/10/2010, 09/13/2004 Varicella Vaccines Aged Out 05/14/1997 No longer eligible based on patient's age to complete this topic HIV Screening Completed 09/13/2004 MMR Vaccines Aged Out 05/25/2011, 10/30/1987 No lo nger eligible based on patient's age to complete this topic HIB Vaccines Aged Out No longer eligi [...] aneurysm without rupture, unspecified portion of aorta ([facility] V24) SCR MAMMO BI INCL CAD Routine 03/27/2019 4:06 PM EST Encounter for other screening for malignant neoplasm of breast LIPID PANEL Routine 03/11/2019 HM HIV SCREENING Routine 09/13/2004 from Last 3 Months or Most Recently Relevant to Health Maintenance Results * (ABNORMAL) TRANSTHORACIC ECHOCARDIOGRAM (TTE) COMPLETE (08/26/2024 7:50 AM EDT) Left Atrium Minor [place] 5.7 cm CV PACS Left Atrium Major [place] 5.7 cm CV PACS LA Area Sys [...] Volume 90 mL CV PACS MV Deceleration [place] 2.9 m/s2 CV PACS E Wave Deceleration [...] nal Result * (ABNORMAL) Lipid panel (03/11/2019) [facility] LDL/HDL Ratio 4 0 - 4 Triglycerides 111 0 - 150 mg/dL Cholesterol 224(A) 0 - 200 mg/dL HDL 54 >=40 mg/dL LDL Cholesterol 148(A) 0 - 100 mg/dL Blood Venous blood specimen / Unknown Result [facility] Historical Provider LAB BLOOD ORDERABLES Anna l Result * Hm HIV Screening (09/13/2004) [facility] HIV Screening abstracted Result [facility] Historical Provider HEALTH MAINTENANCE Final Result from Last 3 Months or Most Recently Relevant to Health Maintenance Insurance [facility] Care Teams Public Improvement Inspector Relationship Specialty Start Date End Date Neela Winkler NP [address] [place] [id number] [address] [place] [address] PCP - General 05/20/22
[2024-09-11 11:35] LABS: Hemoglobin A1C 116.3287 umol/L; Total Hemoglobin (HGBA1C) 3377.2656 umol/L
[2024-09-11 11:47] LABS: Alanine Aminotransferase 50 U/L (0-31); Albumin Level 4.3 g/dL (3.5-5.0); Alkaline Phosphatase 79 U/L (39-117); Anion Gap 11 (12-20); Aspartate Amino Transferase 39 U/L (5-31); Blood Urea Nitrogen 13 mg/dL (9-16); Calcium 9.3 mg/dL (8.4-10.2); Carbon Dioxide 29 mmol/L (22-29); Chloride 105 mmol/L (96-108); Cholesterol 159 mg/dL (<200); Estimated Glomerular Filt Rate > 60; HDL Cholesterol 34 mg/dL (>40); Potassium 3.8 mmol/L (3.3-5.1); Sodium 141 mmol/L (135-145); Total Protein 6.9 g/dL (6.5-8.0); Triglycerides 120 mg/dL (<150)
[2024-09-14 04:23] LABS: TS Negative Control Passed; TS Panel A 0; TS Panel B 0; TS Positive Control Passed; TSpotTB Negative (Negative)
== END 2024-09-11 08:19 | disposition home or self-care (01) ==
LOC: HO.WFDLDS 08:18
PROVIDERS: Visit Provider Family Medicine
DX: Z00.00 Encounter for general adult medical examination without abnormal findings (principal); Z11.1 Encounter for screening for respiratory tuberculosis; R73.01 Impaired fasting glucose; E66.9 Obesity, unspecified; E78.5 Hyperlipidemia, unspecified
CPT/HCPCS: 36415; 80053; 80061; 83036; 86481

== ENCOUNTER 2024-09-23 11:47 | Outpatient (AMB) | payer OTHER, SELFPAY ==
--- NOTE | 2024-09-23 12:13 | A.OFFPC_ITS ---
Vital Signs 09/23/24 12:17 Height 5 ft 6 in Weight 210 lb BMI 33.9 BP 102/70 Blood Pressure Location Rt brachial Position Sitting Respiration 16 Pulse 78 Pulse Source Pulse Oximeter Temp 97.0 F Temp Source Temporal Artery Scan Pulse Oximetry (%) 97 Oxygen Delivery Method Room Air Intake Visit Reasons: Annual exam Intake Note: Татьяна presents in the office today for her annual physical. Allergies atorvastatin Allergy (Unknown, Verified 09/23/24 12:14) Muscle cramps Wet cold weather Allergy (Intermediate, Uncoded 09/23/24 12:14) urticaria Tobacco use date assessed: 09/23/24 Dental Screening Dental Screen Date: 09/23/24 Did you have a dental visit in the last 12 months?: Yes Did you have a dental problem in the last 6 months where you did not have access to dental care?: No Was dental information given to patient?: Patient has dentist HPI Annual exam HPI Details 54 y/o female presents for a CPE with f/ u labs and health maintenance. Labs drawn 09/11/24. Reviewed labs with pt. Elevated liver enzymes - AST 39, ALT 50. Triglycerides 120. TC 159. LDL 101. HDL low at 34. BP today 102/70, 78p. She is on lisinopril 15mg, HCTZ 25mg daily. HPI Comments History of Present Illness Details Documentation assistance for Virgilio Cheatham MD, was provided by Mikey Cheung,? Filling Station Equipment Mechanic on 09/23/2024 at 1:17 PM EST. I, Dr. Cheatham, have read, observed, and verified documentation. ? PFSH Medical History COVID COVID-19 vaccine series completed delivery delivered Varicose veins of both legs with edema AA (aortic aneurysm) Migraines Asthma Surgical History Hx of colonoscopy H/O medial meniscus repair of right knee History of cholecystectomy H/O tubal ligation Family History Father Hypertension Colon polyps Mental health disorder Mother Hypertension Paternal Grandfather Colon cancer Child No Financial Resp Anxiety Social History (Updated 09/23/24 @ 12:16 by Adina Wilson MA) Household Members Other:: , 14 y/o Housing: House Are you a primary healthcare administration intern to a significant other at home: No Do you presently have visiting nurse or other home services: No Alcohol intake: current Alcohol intake frequency: holidays/special occasions only Patient Tobacco Use Status: Never used Tobacco e-Cigarette/Vaping Use: Never Used Second Hand Smoke Exposure: No Use of substances other than those prescribed or required for medical reasons: No service: No Current occupation: Nurse Cognitive needs: No Hearing needs: No Vision needs: Yes (Patient wears glasses.) Questionnaire Thrive Questionnaire Date Thrive assessed: 09/03/24 I am a: Patient What is your living situation today?: I have a steady place to live Within the past 12 months, did the food you bought not last and you didn't have the money to get more?: Never true Within the past 12 months, did you worry whether your food would run out before you got money to buy more?: Never true Do you have trouble paying for medicines?: No Do you have trouble getting transportation to medical appointments?: No Do you have trouble paying your heating and electricity bill?: No Do you have trouble taking care of your child, family member or friend?: No Do you have trouble with day-to-day activities such as bathing, preparing meals, shopping, managing finances, etc.?: No Are you currently unemployed and looking for a job?: No Are you interested in more education?: No Please select the resources that you would like help with: None Currently or been in a relationship where the following occur: No concerns reported THRIVE Score: 0 CHRISTIE-7 AMB Questionnaire CHRISTIE-7 Date CHRISTIE - 7 assessed: 09/03/24 Source: Developed by Drs. Porter Kasper, Leila Dacosta, Errol Leung and colleagues, with an educational summer from [employer]. Review of Systems Const Denies chills, Denies fatigue, Denies fever(s), Denies headache(s) and Denies weakness Eyes Denies change in vision ENT Denies dizziness, Denies headache(s), Denies hearing loss, Denies nasal congestion, Denies sinus pain, Denies sinus pressure and Denies sore throat Card Denies chest pain, Denies lightheadedness, Denies dyspnea and Denies other (palpitations) Resp Denies cough, Denies dyspnea and Denies wheezing GI Denies abdominal pain, Denies melena, Denies hematochezia, Denies change in bowel habits, Denies dyspepsia and Denies nausea Denies hematuria and Denies dysuria Musc Denies abnormal gait, Denies myalgias, Denies arthralgias, Denies numbness and Denies tingling Skin/Breast Denies rash, Denies unusual bruising and Denies wounds Neuro Denies abnormal gait, Denies dizziness, Denies headache(s), Denies memory loss, Denies numbness, Denies Sensory deficit (Neuro), Denies tingling and Denies weakness Psych Denies anxiety, Denies depression and Denies memory loss Endo Denies cold intolerance, Denies fatigue, Denies heat intolerance, Denies polyd ipsia and Denies polyuria Bairon/Lymph Denies easy bleeding and Denies easy bruising Aller/Immun Denies wheezing Physical exam (Primary Care) Vital Signs: Last Vital Signs Temp 97.0 F 09/23/24 12:17 Pulse 78 09/23/24 12:17 Resp 16 09/23/24 12:17 BP 102/70 09/23/24 12:17 Pulse Ox 97 09/23/24 12:17 Oxygen Delivery Method Room Air 09/23/24 12:17 BMI result Body Mass Index 33.9 Tobacco/Smoking Status: Tobacco use Status Tobacco use date assessed 09/23/24 09/23/24 12:19 Patient Tobacco Use Status Never used Tobacco 09/23/24 12:19 e-Cigarette/Vaping Use Never Used 09/23/24 12:19 Thrive Assessment: Date of Thrive Assessment Date Thrive assessed 09/03/24 09/23/24 12:19 Currently or been in a relationship where the following occur: No concerns reported Const General: no acute distress, well developed, alert and awake Nutritional Appearance: well nourished Orientation/consciousness: patient oriented x3 HENMT Head: Yes normocephalic and Yes atraumatic Ears: hearing grossly normal bilaterally and TM's normal bilaterally General nose exam: Normal external nose present and Normal nares present Mouth: Normal oral and palatal mucosa present and moist mucous membranes Teeth and gingiva: dentition normal Throat: Yes posterior oropharynx normal Eyes General: appearance normal, both eyes and all related structures Pupils: Equal, round and reactive pupils present and Pupil accommodation reflex normal EOM: EOMs intact bilaterally Neck Neck: Yes normal visual inspection, Yes no lymphadenopathy and Yes trachea midline Thyroid: Thyroid normal Carotids: no bruits Lymphatic: no lymphadenopathy noted Chest Chest palpation & inspection: normal inspection of the chest Resp Effort & Inspection: normal respiratory effort Auscultation: clear to auscultation bilaterally Cardio Rate: regular rate Rhythm: regular rhythm Heart sounds: S1 normal heart sound present, S2 normal heart sound present, no gallops, Murmur heart sound present and no rubs Bruits: no abdominal aortic bruits and no carotid bruits GI Palpation (GI): No Abdominal aortic bruit present, Soft to palpation, nontender, No hepatosplenomegaly present and No Rebound tenderness present Auscultation: normal bowel sounds General: Yes no CVA tenderness Back/Spine/Pelvis Back: no CVA tenderness Cervical Spine: cervical ROM normal and No Cervical spine tenderness Thoracic/Lumbar Spine: thoraco-lumbar ROM normal, No pain with thoraco-lumbar ROM, No thoracic spinal tenderness and No lumbar spinal tenderness Skin Lesions: no lesions Rashes: no rashes Trauma: no lacerations or abrasions Wounds: no wounds Nails: normal Neuro General: patient oriented x3 Cranial nerves: Yes Equal, round and reactive pupils present Cognition (Neuro): normal cognition Gait exam (Neuro): Normal gait present Motor exam (neuro): 5/5 motor strength present throughout Sensory Exam: No Sensory deficit (Neuro) Deep tendon reflexes (DTR's): Right patellar reflex intensity grade: 2+ and Left patellar reflex intensity grade: 2+ Extrem General: Yes normal to inspection and No edema Psych Appearance: grossly normal Affect: normal affect Attitude: cooperative Thought process: Normal thought process present Coding Level of Care Code Est Pt Level 3 (39905) Est Pt Prev Care 40-64y(57335) Diagnoses Adult general medical exam Z00.00 Essential hypertension I10 Elevated liver enzymes R74.8 Screening for cervical cancer Z12.4 Low HDL (under 40) E78.6 Murmur R01.1 Aortic stenosis I35.0 Breast cancer screening by mammogram Z12.31 Screening for colon cancer Z12.11 Assessment & Plan Assessment & Plan (1) Adult general medical exam: Code(s): Z00.00 - Encounter for general adult medical examination without abnormal findings Category: Medical Plan: 54-year-old female presents for complete physical exam Patient has lost about 40 lb since last year. Encouraged ongoing weight loss. (2) Essential hypertension: Code(s): I10 - Essential (primary) hypertension Category: Medical Plan: Blood pressure is controlled. Goal is less than 140/90 Continue current medication (3) Elevated liver enzymes: Code(s): R74.8 - Abnormal levels of other serum enzymes Category: Medical Plan: Liver enzymes are elevated. Likely secondary to hepatic steatosis and some dehydration. Encouraged ongoing weight loss and encouraged good hydration Will recheck liver enzymes in 2-3 months. (4) Screening for cervical cancer: Code(s): Z12.4 - Encounter for screening for malignant neoplasm of cervix Category: Medical Plan: Patient has not had cervical cancer screening includes of time Offered to make referral but patient wants to contact a awning spreader herself. (5) Low HDL (under 40): Code(s): E78.6 - Lipoprotein deficiency Category: Medical Plan: Encouraged exercise [place] 3 fatty acids diet Will continue to monitor (6) Murmur: Code(s): R01.1 - Cardiac murmur, unspecified Category: Medical Plan: Stable (7) Aortic stenosis: Code(s): I35.0 - Nonrheumatic aortic (valve) stenosis Category: Medical Plan: Followed by cardiology and gets echocardiogram Q 2 years Follow-up with Dr. Nagel as recommended. (8) Breast cancer screening by mammogram: Code(s): Z12.31 - Encounter for screening mammogram for malignant neoplasm of breast Category: Medical Plan: Mammogram in January was negative for malignancies Continue annual screening (9) Screening for colon cancer: Comment: colonoscopy Code(s): Z12.11 - Encounter for screening for malignant neoplasm of colon Category: Medical Plan: Colonoscopy with Dr. Muir last year. Up-to-date Follow-up with Gastroenterology as recommended
[2024-09-23 12:17] VITALS: BP 102/70; PULSE 78; RESP 16; TEMP 36.1; O2SAT 97; BMI 33.9
--- OUTSIDE RECORDS SUMMARY | 2024-09-23 12:50 | XMS_ITS | Clinical Summary ---
Author Organization [address] [place] [address] Address [address] [place] [address] Phone Care Team Providers Care Candle Maker Name Role Phone Neela Winkler COMMISSIONER PUBLIC WORKS Primary Care Provider Allergies No known active [...] of connective tissue disease Thoracic aortic ectasia ([facility] V24) 08/07/2020 Cardiomegaly 08/07/2020 Aortic aneurysm ([facility] V24) 05/09/2019 Overview (02/19/2024): Ascending aorta 3/9cm [...] Description 08/26/2024 7:00 AM EDT Ancillary Procedure [facility] [address] [place] [address] Aortic aneurysm without rupture, unspecified portion of aorta ([facility] V24) from Last 3 Months Immunizations Name Administration Dates Next Due Hepatitis B (Kodevlu-N-Wgjhd , Recombivax HB-Adult) 19yo and older 12/18/1991,11/15/1991,08/09/1989 [...] COMMENT: Lap chol SECTION 1991. 2005 PROCEDURE: [place] DELIVERY ONLY; COMMENT: x2 TUBAL LIGATION March [...] 03/27/2021 03/27/2019 Colorectal Cancer Screening: Colonoscopy 02/05/2022 Hepatitis C Screening 02/05/2022 Social Influencers of Health Screening 02/05/2022 Depression Screening 03/06/2024 Cholesterol Screening (Lipid Panel) 03/11/2024 03/11/2019 COVID-19 [...] aneurysm without rupture, unspecified portion of aorta ([facility] V24) SCR MAMMO BI INCL CAD Routine 03/27/2019 4:06 PM EST Encounter for other screening for malignant neoplasm of breast LIPID PANEL Routine 03/11/2019 HM HIV SCREENING Routine 09/13/2004 from Last 3 Months or Most Recently Relevant to Health Maintenance Results * (ABNORMAL) TRANSTHORACIC ECHOCARDIOGRAM (TTE) COMPLETE (08/26/2024 7:50 AM EDT) Left [facility] [place] 5.7 cm CV PACS Left [facility] [place] 5.7 cm CV PACS LA Area Sys [...] Volume 90 mL CV PACS MV Deceleration Josephine 2.9 m/s2 CV PACS E Wave Deceleration [...] nal Result * (ABNORMAL) Lipid panel (03/11/2019) [facility] LDL/HDL Ratio 4 0 - 4 Triglycerides 111 0 - 150 mg/dL Cholesterol 224(A) 0 - 200 mg/dL HDL 54 >=40 mg/dL LDL Cholesterol 148(A) 0 - 100 mg/dL Blood Venous blood specimen / Unknown Result [facility] Historical Provider LAB BLOOD ORDERABLES Anna l Result * Hm HIV Screening (09/13/2004) [facility] HIV Screening abstracted Result [facility] Historical Provider HEALTH MAINTENANCE Final Result from Last 3 Months or Most Recently Relevant to Health Maintenance Insurance [facility] Care Teams Candle Maker Relationship Specialty Start Date End Date Neela Winkler NP [address] [place] [address] [address] [place] [address] PCP - General 05/20/22
== END 2024-09-23 13:26 | disposition home or self-care (01) ==
LOC: HO.HMCFM 11:48
PROVIDERS: PCP Family Medicine; Visit Provider Family Medicine
DX: Z00.00 Encounter for general adult medical examination without abnormal findings (principal); I10 Essential (primary) hypertension; R74.8 Abnormal levels of other serum enzymes; E78.6 Lipoprotein deficiency; R01.1 Cardiac murmur, unspecified; I35.0 Nonrheumatic aortic (valve) stenosis; Z12.31 Encounter for screening mammogram for malignant neoplasm of breast; Z12.11 Encounter for screening for malignant neoplasm of colon

== ENCOUNTER 2025-01-27 07:45 | Outpatient (REF) | payer OTHER, SELFPAY ==
--- NOTE | ~2025-01-27 | MM_ITS ---
EXAMINATION: MM SCREENING DIGITAL BREAST TOMOSYNTHESIS, BILATERAL CLINICAL INFORMATION: Screening. Asymptomatic. COMPARISON: Comparison made to multiple prior, most recent January 16, 2024, and most remote February 04, 2015. TECHNIQUE: Digital breast tomosynthesis is performed in mediolateral oblique and craniocaudal views along with computer-aided detection (CAD). Synthesized 2D images are generated from the tomosynthesis. FINDINGS: BREAST COMPOSITION: There are scattered areas of fibroglandular density. BILATERAL BREASTS: No significant masses, suspicious calcifications or other abnormalities are seen in either breast. MM/MM tomosynthesis screening BI IMPRESSION: BILATERAL BREASTS: Negative, no mammographic evidence of malignancy. Normal interval follow-up is recommended in 12 months. ASSESSMENT: BI-RADS: Category 1: Negative RECOMMENDATION: Routine annual mammography screening. FOLLOW-UP: 1 year F/U This examination should not preclude the clinical evaluation of a suspicious palpable abnormality. This patient's information was entered into a reminder system with a target due date for their next mammogram. Electronically signed by: Toni Phillips MD 01/28/2025 08:15 AM EST
--- OUTSIDE RECORDS SUMMARY | 2025-01-27 07:48 | XMS_ITS | Encounter Summary ---
Author Organization [facility] Address [address] [place] [address] Care Team Providers Care Combining Machine Operator Name Role Phone Nelea Winkler OUTSIDE COLLECTOR Primary Care Provider Reason for Visit * Reason Onset Date Comments appointment scheduling 01/07/2025 Encounter Details Date Type Department Care Team ([facility] st Contact Info) Description 01/07/[address] [facility] [address] [place] [address] Sancho Christian MD [address] [place] [address] [address] [place] [phone] Social History Tobacco Use Types Packs/Day Years Used Date Smoking Tobacco: Never Smokeless Tobacco: Never Alcohol Use Standard Drinks/Week Comments Not Currently 0 (1 standard drink = 0.6 oz pur e alcohol) Comments Unknown Sex and Gender Information Value Date Recorded Sex Assigned at Not on file Legal Sex Female 7:19 PM EST Gender Identity Not on file Sexual Orientation Not on file documented as of this encounter Progress Notes * Blanca Burch - 01/07/2025 11:04 AM EST Called patient to schedule an appointment for Dr Christian next avail. documented in this encounter Plan of Treatment Not on file documented as of this encounter Visit Diagnoses Not on filedocumented in this encounter Care Teams Combining Machine Operator Relationship Specialty Start Date End Date Neela Winkler, OUTSIDE COLLECTOR [address] [place] [address] [address] [place] [address] PCP - General 05/20/22 documented as of this encounter
--- OUTSIDE RECORDS SUMMARY | 2025-01-27 07:48 | XMS_ITS | Clinical Summary ---
Author Organization [address] [place] [address] Address [address] [place] [address] Phone Care Team Providers Care Ad Taker Name Role Phone Neela Winkler AIR CREW SUPERVISOR Primary Care Provider Allergies No known active [...] of connective tissue disease Thoracic aortic ectasia ([facility] V24) 08/07/2020 Cardiomegaly 08/07/2020 Aortic aneurysm ([facility] V24) 05/09/2019 Overview (02/19/2024): Ascending aorta [...] Encounters Date Type Department Care Team Description 01/07/2025 Telephone [facility] [address] [place] [address] Sancho Christian MD from Last 3 Months Immunizations Immunization Administration Dates Next Due Hepatitis B (Uibzpqq-O-Lbkix , Recombivax HB-Adult) 19yo and older 12/18/1991,11/15/1991,08/09/1989 [...] COMMENT: Lap chol SECTION 1991. 2005 PROCEDURE: [place] DELIVERY ONLY; COMMENT: x2 TUBAL LIGATION March [...] Health Maintenance Due Date Last Done Comments Colorectal Cancer Screening: Colonoscopy 1968 Cervical Cancer Screening: Pap Smear 02/23/1989 Hepatitis B Vaccines (3 of 3 - 19+ 3-dose series) 02/12/1992 12/18/1991, 11/15/1991, 08/09/1989 Pneumococcal Vaccine: 50+ Years (2 of 2 - PCV) 07/17/2012 07/18/2011 RSV Immunization Adult Patients (1 - Risk 50-74 years 1-dose series) 02/23/2018 Zoster Vaccines (2 of 2) 07/15/2020 021, 11/20/2019, 05/14/1997 Breast Cancer Screening 03/27/2021 03/27/2019 Hepatitis C Screening 02/05/2022 Social Influencers of Health Screening 02/05/2022 Depression Screening 03/06/2024 Cholesterol Screening (Lipid Panel) 03/11/2024 03/11/2019 COVID-19 Vaccine ( season) 2024 02/15/2024, 12/12/2022, 01/19/2022, Additional history [...] Procedure Name Priority Date/Time Associated Diagnosis Comments SCR MAMMO BI INCL CAD Routine 03/27/2019 4:06 PM EST Encounter for other screening for malignant neoplasm of breast LIPID PANEL Routine 03/11/2019 HM HIV SCREENING Routine 09/13/2004 from Last 3 Months or Most Recently Relevant to Health Maintenance Results * SCR MAMMO BI INCL CAD (03/27/2019 [...] cancer risk category Low (<15%) Procedure Note Stephanie Herrera - 02/22/2022 This is a summary report. [...] nal Result * (ABNORMAL) Lipid panel (03/11/2019) LDL/HDL Ratio 4 0 - 4 Triglycerides 111 0 - 150 mg/dL Cholesterol 224(A) 0 - 200 mg/dL HDL 54 >=40 mg/dL LDL Cholesterol 148(A) 0 - 100 mg/dL Blood Venous blood specimen / Unknown Historical Provider LAB BLOOD ORDERABLES Anna l Result * Hm HIV Screening (09/13/2004) HIV Screening abstracted Historical Provider HEALTH MAINTENANCE Final Result from Last 3 Months or Most Recently Relevant to Health Maintenance Insurance [facility] Care Teams Ad Taker Relationship Specialty Start Date End Date Neela Winkler NP [address] [facility] [address] [place], [place] [id number] PCP - General 05/20/22
== END 2025-01-27 07:46 | disposition home or self-care (01) ==
LOC: HO.MAMMO 07:45
PROVIDERS: PCP Family Medicine; Visit Provider Family Medicine
DX: Z12.31 Encounter for screening mammogram for malignant neoplasm of breast (principal)
CPT/HCPCS: 77063; 77067

== ENCOUNTER → 2025-01-27 08:00 | Outpatient (BNV) | payer OTHER, SELFPAY | PROVIDERS: PCP Family Medicine; Visit Provider Radiology Body Imaging | DX: Z12.31 Encounter for screening mammogram for malignant neoplasm of breast (principal) | CPT/HCPCS: 77063; 77067 ==